=== PATIENT | female | born 1985 | race Caucasian/White ===

== ENCOUNTER 2020-10-19 00:57 | Emergency (ER) | payer MEDICAID, SELFPAY ==
--- NOTE | 2020-10-19 01:00 | DI.CT_ITS ---
Exam(s) CT ABDOMEN PELVIS CTA EXAM: CT ABDOMEN PELVIS CTA CLINICAL HISTORY: rlq pain, on period, concern for appe/torsion. TECHNIQUE: Imaging Protocol: Axial computed tomography images with coronal and sagittal reformatted images were created and reviewed CONTRAST MATERIAL: Intravenous: Omnipaque 350 Contrast volume:100 ml Oral: None COMPARISON: No exams were available for comparison FINDINGS: VISUALIZED LUNG BASES: No significant focal findings nor pleural effusions. ABDOMEN: ABDOMINAL AORTA AND BRANCHES: There is no evidence of abdominal aortic aneurysm. Aortic branch vessels are patent. Celiac and superior mesenteric artery and inferior mesenteric artery are patent. Both renal arteries are patent. The aortic bifurcation is patent. Common and external iliac arteries are patent and no naneurysmal. No significant stenosis. Common femoral arteries are patent. There is no ascites in the upper abdomen.. LIVER: No discrete focal hepatic lesions evident on this arterial phase study. There is an element o f a [place] steatosis. GALLBLADDER/BILIARY: No obvious gallbladder pathology. CBD is not dilated. PANCREAS: No evidence of pancreatic mass nor dilatation of the pancreatic duct. SPLEEN: Spleen size is normal. No intrasplenic lesions evident. ADRENALS: No significant masses. KIDNEYS: Both kidneys exhibit normal size. No abnormal focal renal findings. No calculi nor hydrone phrosis evident. No hydroureter. LYMPH NODES: There is no retroperitoneal nor para-aortic adenopathy. No obvious mesenteric masses. ABDOMINAL WALL/GI: No evidence of significant anterior abdominal wall hernia. No ischemic appearing bowel loops. No bowel obstruction. PELVIS: LYMPH NODES: There is no intrapelvic nor inguinal adenopathy. GI: No obvious appendicitis. No diverticulitis URINARY BLADDER: No calculi nor masses evident REPRODUCTIVE: Left ovary appears enlarged and abnormal measuring 4.5 x 3.6 cm and heterogeneous appea butch with a tiny amount of fluid in the left adnexa. The uterus also appears somewhat heterogeneous . Right ovary is difficult to identify. OSSEOUS: Increased density on the iliac side of both sacroiliac joints may indicate bilateral sacroil iitis. There is no ankylosis. There are also bilateral pars interarticularis defects at L5 level no panda without significant anterolisthesis of L5 upon S1. IMPRESSION: 1. The main findings are in the left adnexa. Left ovary is an enlarged and abnormal in appearance as described above. Ultrasound recommended. There is also some very small amount of fluid in the left adnexa. Ultrasound recommended. Also Gyne consultation. 2. Uterus also exhibits heterogeneous enhancement and should also be studied with ultrasound. 3. No significant findings in the abdominal aorta and aortoiliac segments. RADIATION DOSE DELIVERED: 952.12mGy.cm Total DLP 952.12mGy.cm Total DLP DATA REPOSITORY: All CT scans at this facility are submitted to the National Radiology Data Registry (NRDR) Dose Index Registry (DIR) with the [employer] (ACR). RADIATION OPTIMIZATION: All CT scans at this facility use at least one of these dose optimization te chniques: automated exposure control; mA and/or kV adjustment per patient size (includes targeted exa ms where dose is matched to clinical indication); or iterative reconstruction.
[2020-10-19 01:08] VITALS: BP 158/94; PULSE 96; RESP 22; TEMP 36.8; O2SAT 98
--- NOTE | 2020-10-19 01:09 | ED.GENADUL_ITS ---
Discharge Plan Disposition Patient Disposition: HOME Condition: Good Discharge Details Clinical Impression: Right sided abdominal pain Primary Care Provider: Azeem Elizabeth ED Provider: Ernie Mack Home Meds and New Rx's Prescriptions: No Action No Known Home Meds RF: 0 Discharge Instructions Instructions: Abdominal Pain (ED) Additional Instructions: At this time your CAT scan shows no evidence of appendicitis, ovarian torsion, or other concerning emergent surgical abnormality. Currently your symptoms are likely from a small ovarian cyst that popped and is now causing some mild irritation in your abdomen. Please take Tylenol and Motrin as needed for pain. Please drink plenty of fluids. If you notice any worsening of your symptoms, or any new symptoms such as vomiting, diarrhea, fever, chills, shortness of breath, chest pain, numbness, weakness, or fainting , please return immediately to the emergency department for reevaluation. Please follow up with your primary care provider as soon as possible for reassessment and reevaluation. As always, it was a pleasure participating in your medical care today. Referrals: Azeem Elizabeth [Primary Care Provider] - Lisseth Schilling [PHYSICIANS TIME STUDY CLERK] - Medical Decision Making This is a 35-year-old female with no significant past medical history who presents today for evaluation of right lower quadrant pain. Patient states that 1 hour prior to arrival she said had sudden onset sharp right mid abdominal tenderness. Dinner was unremarkable earlier this evening. She has nausea but no vomiting. She denies any diarrhea. She denies chest pain or shortness of breath. She did recently start her menstrual period and is currently having mild vaginal bleeding which is normal for her. She denies any diarrhea, hematochezia or hematemesis. She denies ever having symptoms like this before. Pain is sharp and radiates from the right mid quadrant throughout the rest of the abdomen. Aside from movement there is no other particular aggravating or relieving factor. No other complaint at this time. Exam demonstrates mild to moderate right lower and right mid quadrant tenderness. No significant left-sided tenderness. Pain is present at McBurney's point. Negative Vargas sign. Differential includes, appendicitis, less likely gallbladder pathology, less likely right-sided ovarian torsion. Kidney stone seems unlikely. We will get a CT scan, monitor closely and reassess. 3:30 AM Laboratory work-up has returned, notably unremarkable. No bandemia or significant left shift, electrolytes normal. Urinalysis shows no evidence of large infection, does show evidence of a small amount of blood and RBCs likely secondary to her being on her menstrual cycle. CT scan has returned, there is a small amount of free fluid in the pelvis, the left ovary is 4 x 3 cm, right ovary is notably unremarkable. Case discussed with radiologist/Kimi harding, the radiologist sees no twirling of the vessels of the ovaries, and the right ovary again has no enlargement. Repeat exam after Toradol and Jus Mab demonstrates near complete improvement of symptoms. Pain is down to a 2. Repeat abdominal exam shows no signs of an acute surgical abdomen, no significant abdominal tenderness anymore. Symptoms are clinically inconsistent with torsion. I suspect the patient had a small cyst which caused the free fluid which is subsequently causing the mild generalized abdominal pain. Repeat exam shows no obturator or psoas sign, no pain at McBurney's point, and a negative Vargas sign. Symptoms also appear inconsistent with intermittent both left and right sided torsion, and the initial assessment was inconsistent with left-sided torsion. At this time with the patient symptoms resolved, and no current evidence of an acute life-threatening or surgical etiology, I do feel that the patient can be discharged. Recommend continued NSAIDs at home. Discussed red flags which to return. I have extensively reviewed the treatment plan and discharge instructions with the patient. I have addressed all patient concerns at this time. The patient was made aware of what symptoms to monitor for that would warrant a return to the emergency department. Discussed the plan with the patient, they demonstrate verbal understanding and agreement with our assessment and plan at this time. The documentation in this chart was dictated using [employer] dictation software. Please excuse any dictation errors. FINDINGS: Aorta: No aortic aneurysm. No aortic dissection. Celiac trunk and mesenteric arteries: No occlusion or significant stenosis. Renal arteries: No occlusion or significant stenosis. Right iliac arteries: No occlusion or significant stenosis. Left iliac arteries: No occlusion or significant stenosis. Liver: Hepatic steatosis is present. Gallbladder and bile ducts: Unremarkable. No calcified stones. No ductal dilation. Pancreas: Unremarkable. No mass. No ductal dilation. Spleen: Unremarkable. No splenomegaly. Adrenal glands: Unremarkable. No mass. Kidneys and ureters: Unremarkable. No solid mass. No hydronephrosis. Stomach and bowel: Unremarkable. No obstruction. No mucosal thickening. Appendix: No evidence of appendicitis. Intraperitoneal space: Trace free fluid is present which is nonspecific but may reflect physiologic fluid or rupture of an ovarian cyst or follicle. Lymph nodes: Unremarkable. No enlarged lymph nodes. Urinary bladder: Unremarkable. No mass. Reproductive: The left ovary is slightly prominent and demonstrates periovarian small fluid. The ovary measures up to 4.1 by 3.3 cm. Normal vascularity noted in the gonadal and parametrial veins, however if clinical suspicion exists for left-sided torsion, sonography would be recommended. Bones/joints: No acute fracture. No dislocation. Soft tissues: Unremarkable. IMPRESSION: 1. Trace free pelvic fluid. 2. The left ovary is slightly prominent and demonstrates periovarian small fluid. The ovary measures up to 4.1 by 3.3 cm. Normal vascularity noted in the gonadal and parametrial veins, however if clinical suspicion exists for left-sided torsion, sonography would be recommended. Thank you for allowing us to participate in the care of your patient. Dictated and Authenticated by: Chaim Altamirano MD 10/19/2020 2:32 AM Eastern Time ([place] & [place]) HPI General Date/Time Provider Initiated Documentation: 10/19/20 00:58 . HPI Narrative: This is a 35-year-old female with no significant past medical history who presents today for evaluation of right lower quadrant pain. Patient states that 1 hour prior to arrival she said had sudden onset sharp right mid abdominal tenderness. Dinner was unremarkable earlier this evening. She has nausea but no vomiting. She denies any diarrhea. She denies chest pain or shortness of breath. She did recently start her menstrual period and is currently having mild vaginal bleeding which is normal for her. She denies any diarrhea, hematochezia or hematemesis. She denies ever having symptoms like this before. Pain is sharp and radiates from the right mid quadrant throughout the rest of the abdomen. Aside from movement there is no other particular aggravating or relieving factor. No other complaint at this time. Related Data Home Medications Medication Instructions Recorded Confirmed Unknown [No Known Home Meds] 10/19/20 10/19/20 Allergies Allergy/AdvReac Type Severity Reaction Status Date / Time promethazine HCl AdvReac Mild involuntary Unverified 10/19/20 01:15 [From Phenergan] twitching Review of Systems All systems reviewed & are unremarkable except as noted in HPI and below [facility] Social History Smoking/Tobacco Use Status: Never Smoking risk assessment performed?: Yes Alcohol Intake: current Alcohol Intake frequency: a few times a month Drug use: Never Substance use type: does not use Do you feel safe at home: Yes Do you feel safe in your relationship?: Yes Exam Narrative Exam Narrative: 1.Const: Well-nourished, Well-developed, appearing stated age 2.Eyes: PERRL, no conjunctival injection, and symmetrical lids. 3.ENT: Atraumatic external nose and ears. Moist MM. Neck: Symmetric, trachea midline, No thyromegaly. 4.CVS: +S1/S2, No murmurs or gallops. Peripheral pulses 2+ and equal in all extremities. Brisk capillary refill in all extremities. 5.RESP: Unlabored respiratory effort. Clear to auscultation bilaterally. No wheezes rales or rhonchi 6.GI: Soft, nondistended, moderate to notable right mid to right lower quadrant tenderness. No pelvic tenderness. Pain is present over McBurney's point. Negative Vargas sign. Minimal right CVA tenderness. Positive obturator sign. Positive heel strike on the right. Negative Rovsing sign. No suprapubic tenderness. 7.MSK: Normocephalic/Atraumatic, Extremities w/o deformity or ttp No cyanosis or clubbing, Normal movement of all extremities 8.Skin: Warm, Dry. No rashes or lesions. 9.Neuro: activities director II-XII grossly intact. Sensation grossly intact, no focal neurologic deficits. 10.Psych: (AAO) x3. Appropriate mood and affect
[2020-10-19] MEDS: Normal Saline 1,000 ML 1000 ML IV (01:25)
[2020-10-19] MEDS: Ondansetron 4 MG/2 ML VIAL IVP (01:26)
[2020-10-19] MEDS: HYDROmorphone 2 MG/ML VIAL 1 MG IVP (01:27)
[2020-10-19 01:29] LABS: Bilirubin Negative (Negative); Blood Large (Negative); Clarity Sl Cloudy (Clear); Glucose Negative (Negative); Ketones Trace mg/dL (Negative); Leukocyte Esterase Small (Negative); Nitrite Negative (Negative); Specific Gravity >= 1.030 (1.005-1.025); pH 6.5 (5-8)
[2020-10-19 01:30] VITALS: BP 122/68; PULSE 84; RESP 18; O2SAT 97
[2020-10-19] MEDS: Omnipaque 350 MG/ML 100 ML BTL IJ (01:36)
[2020-10-19 01:37] LABS: Bacteria Few HPF (Negative); C & S Indicated? Yes; Casts Negative LPF (Negative); Crystals Negative HPF (Negative); Epithelial Cells Rare HPF (Negative); Mucus Negative (Negative)
[2020-10-19 01:40] LABS: Lactate 1.2 mmol/L (0.6-1.4)
[2020-10-19 01:41] LABS: Abs Immature Grans 0.04 10^3/uL (0.0-0.06); Absolute Basophil Count 0.02 10^3/uL (0.0-0.2); Absolute Eosinophil Count 0.14 10^3/uL (0.0-0.7); Absolute Lymphocyte Count 2.32 10^3/uL (1.2-3.4); Absolute Monocyte Count 0.55 10^3/uL (0.1-0.8); Absolute Neutrophil Count 8.71 10^3/uL (1.2-6.7); Basophils % 0.2; Eosinophils % 1.2; HGB 12.9 g/dL (11.2-15.7); Immature Grans % 0.3; Lymphocytes % 19.7; MCH 27.4 pg (27.0-33.0); MCHC 33.1 % (32.0-36.0); MPV 9.1 fL (8.0-11.0); Monocytes % 4.7; Neutrophils % 73.9; Nucleated RBC 0 %; Platelet Count 297 10^3/uL (130-400); RDW 12.2 % (11.7-14.6); WBC 11.79 10^3/uL (4.4-10.8)
[2020-10-19 01:45] VITALS: BP 122/77; PULSE 84; RESP 18; O2SAT 99
[2020-10-19 01:49] LABS: Potassium 3.7 mmol/L (3.5-5.1)
[2020-10-19 02:01] LABS: ALT 22 U/L (14-59); AST 15 U/L (15-37); Albumin 3.7 g/dL (3.4-5.0); Alkaline Phosphatase 65 U/L (46-116); Anion Gap 11.1 mmol/L (3-11); BUN 16 mg/dL (7-18); Bilirubin, Total 0.4 mg/dL (0.2-1.0); CO2 24.9 mmol/L (21.0-32.0); Calcium 8.7 mg/dL (8.5-10.1); Chloride 106 mmol/L (98-107); Glucose 113 mg/dL (74-106); Lipase 108 U/L (73-393); Sodium 142 mmol/L (136-145); Total Protein 7.7 g/dL (6.4-8.2)
[2020-10-19] MEDS: Normal Saline - Diluent 50 ML VIAL IV (02:10)
[2020-10-19] MEDS: Normal Saline Flush 10 ML SYR IVP (02:11)
[2020-10-19 02:15] VITALS: BP 144/70; PULSE 87; RESP 18; O2SAT 100
--- NOTE | 2020-10-19 02:32 | DI.VRAD_ITS ---
PROCEDURE INFORMATION: Exam: CTA Abdomen and Pelvis With Contrast Exam date and time: 10/19/2020 1:56 AM Age: 35 years old Clinical indication: Abdominal pain; Localized; Right lower quadrant (rlq); Patient HX: Rlq pain , on period, concern for appe/torsion TECHNIQUE: Imaging protocol: Computed tomographic angiography of the abdomen and pelvis with contrast material. 3D rendering (Not supervised by radiologist): MIP and/or 3D reconstructed images were created by the technologist. Radiation optimization: All CT scans at this facility use at least one of these dose optimization techniques: automated exposure control; mA and/or kV adjustment per patient size (includes targeted exams where dose is matched to clinical indication); or iterative reconstruction. Contrast material: OMNIPAQUE 350; Contrast volume: 100 ml; Contrast route: INTRAVENOUS (IV); COMPARISON: No relevant prior studies available. FINDINGS: Aorta: No aortic aneurysm. No aortic dissection. Celiac trunk and mesenteric arteries: No occlusion or significant stenosis. Renal arteries: No occlusion or significant stenosis. Right iliac arteries: No occlusion or significant stenosis. Left iliac arteries: No occlusion or significant stenosis. Liver: Hepatic steatosis is present. Gallbladder and bile ducts: Unremarkable. No calcified stones. No ductal dilation. Pancreas: Unremarkable. No mass. No ductal dilation. Spleen: Unremarkable. No splenomegaly. Adrenal glands: Unremarkable. No mass. Kidneys and ureters: Unremarkable. No solid mass. No hydronephrosis. Stomach and bowel: Unremarkable. No obstruction. No mucosal thickening. Appendix: No evidence of appendicitis. Intraperitoneal space: Trace free fluid is present which is nonspecific but may reflect physiologic fluid or rupture of an ovarian cyst or follicle. Lymph nodes: Unremarkable. No enlarged lymph nodes. Urinary bladder: Unremarkable. No mass. Reproductive: The left ovary is slightly prominent and demonstrates periovarian small fluid. The ovary measures up to 4.1 by 3.3 cm. Normal vascularity noted in the gonadal and parametrial veins, however if clinical suspicion exists for left-sided torsion, sonography would be recommended. Bones/joints: No acute fracture. No dislocation. Soft tissues: Unremarkable. IMPRESSION: 1. Trace free pelvic fluid. 2. The left ovary is slightly prominent and demonstrates periovarian small fluid. The ovary measures up to 4.1 by 3.3 cm. Normal vascularity noted in the gonadal and parametrial veins, however if clinical suspicion exists for left-sided torsion, sonography would be recommended. Dictated and Authenticated by: Chaim Altamirano MD. Ordering:FAREED Klein MD
[2020-10-19 03:00] VITALS: BP 127/88; PULSE 84; RESP 18; O2SAT 99
[2020-10-19] MEDS: Ketorolac 30 MG/ML VIAL IVP (03:05)
[2020-10-19] MEDS: ACETAMINOPHEN 1,000 MG/100 ML BTL 400 MG IVPB (03:10)
== END 2020-10-19 03:45 | disposition home or self-care (01) ==
PROVIDERS: Emergency Provider Student in an Organized Health Care Education/Training Program; PCP Family Medicine
DX: R10.31 Right lower quadrant pain (principal)
CPT/HCPCS: 80053; 81025; 83690; 96361; 96374; 96375; 99285; 74174; 81003; 81015; 83605; 85025; 87086; 99284; J0131; J1885; J2405; J3490

== ENCOUNTER 2022-08-15 03:22 | Observation (INO) | payer MEDICAID, SELFPAY ==
[2022-08-15] VITALS (15 sets, daily range): BP systolic 80–145; BP diastolic 58–88; PULSE 78–107; RESP 11–18; TEMP 35.7–36.8; O2SAT 97–99; BMI 37.8
--- NOTE | 2022-08-15 03:30 | DI.CT_ITS ---
Exam(s) CT ABDOMEN PELVIS W EXAM: CT ABDOMEN PELVIS W CLINICAL HISTORY: rlq pain, vomiting, hx of cysts. TECHNIQUE: Imaging Protocol: Axial computed tomography images with coronal and sagittal reformatted images were created and reviewed CONTRAST MATERIAL: Intravenous: Omnipaque 350 Contrast volume:100 ml Oral: yes / no COMPARISON: CT CT ABDOMEN PELVIS CTA from 10/19/2020 FINDINGS: ABDOMEN: Lung Bases: Normal where visualized. Small hiatal hernia. Liver: Normal density. No measurable mass. Gallbladder and biliary tract: gallstones. No bladder wall thickening. No biliary dilation. Pancreas: Normal density, no abnormal calcifications or inflammatory process. Spleen: Normal. Kidneys: Normal size, contour and axis. No radiodense stones or obstructive uropathy. No suspicious m asses seen. Circumaortic left renal vein. Adrenal glands: No masses seen. Abdominal Aorta: Abdominal portion non-dilated. Soft tissues: Small fatty containing umbilical hernia. PELVIS: Bladder: No gross wall thickening. No calculi.No focal mass. Bowel: No obstruction. Mild nonspecific bowel wall thickening. Mild small bowel dilatation. No ev idence of appendicitis. Peritoneal cavity: Small amount of fluid in the right paracolic gutter and small to moderate quantity of pelvic ascites. Pelvis. Bones: L5 pars defects and grade 1 spondylolisthesis. Reproductive organs: Septated cystic mass with wall thickening arising from the left ovary measuring 10 x 7 x 6 cm. This was seen on the prior exam but smaller in size, approximately 4 x 3 cm. Right ova ry uterus unremarkable. Lymph nodes: Unremarkable. Impression: 10 centimeter septated cystic mass with wall thickening involving the left ovary. Pelvic ascites. 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 RADIATION DOSE DELIVERED: 991.02mGy.cm Total DLP DATA REPOSITORY: All CT scans at this facility are submitted to the National Radiology Data Registry (NRDR) Dose Index Registry (DIR) with the [employer] (ACR). RADIATION OPTIMIZATION: All CT scans at this facility use at least one of these dose optimization te chniques: automated exposure control; mA and/or kV adjustment per patient size (includes targeted exa ms where dose is matched to clinical indication); or iterative reconstruction.
--- NOTE | 2022-08-15 03:33 | W.ED.GENAD ---
Discharge Plan Disposition Patient Disposition: Admit to [facility] Condition: Serious Discharge Details Chief Complaint: Abd Prob Clinical Impression: Ovarian cyst Primary Care Provider: Azeem Elizabeth ED Provider: Ernie Mack Medical Decision Making 37-year-old female with a past medical history of ovarian cysts, anxiety, depression, presents today for evaluation of abdominal pain. Patient states that for the last 1 to 2 weeks she has had mild pain on the left side of her abdomen, however for the last 20 to 30 minutes she has had severe pain on the right side of her abdomen. She had been taking Tylenol but this has not been helping her pain significantly on the left. She has not taken anything for the new pain on the right. She describes the pain as severe aching and stabbing. It is constant. It does not come and go. She admits to vomiting secondary to the pain. She denies any urinary complaints or diarrhea. No blood in her vomitus. Physical exam demonstrates a slightly in distress female, right lower quadrant tenderness is appreciated. CVA tenderness bilaterally is present. Differential includes appendicitis, ovarian cyst or ovarian torsion, obstruction. We will get a CT scan, treat her nausea and pain, monitor closely and reassess. 5:26 AM Laboratory work-up has returned, no white count or bandemia. Urinalysis shows questionable UTI, however there are many epithelial cells so I suspect this is just a dirty urine sample. CT scan results demonstrate evidence of a 10 cm cystic mass in the pelvis, with possible enteritis and/or ileus. On reassessment the initial 4 mg of morphine did not improve the pain. Second 4 mg of morphine dosing with Toradol did help bring down the pain from a 10 to a 6. Patient is feeling improved but still does have notable discomfort. Concern is certainly for an ovarian cyst that is intermittently torsed thing. I did contact obstetrics Dr. Borrego, and discussed the case with her. She agrees with the potential concern, and will come in to evaluate the patient. Patient has been typed and screened. She is n.p.o. since 7 PM last night. We will continue to monitor closely. 6:[address] Borrego has seen and assessed the patient. She would like to bring the patient to surgery. I have extensively reviewed the treatment plan with the patient. I have addressed all patient concerns at this time. I have also discussed the plan with the admitting physician and they agree with the current assessment and plan and have agreed to assume responsibility for the patient. All parties demonstrate verbal understanding and agreement with our assessment and plan at this time. The documentation in this chart was dictated using [employer] dictation software. Please excuse any dictation errors. FINDINGS: Liver: Normal. No mass. Gallbladder and bile ducts: Normal. No calcified stones. No ductal dilation. Pancreas: Normal. No ductal dilation. Spleen: Normal. No splenomegaly. Adrenal glands: Normal. No mass. Kidneys and ureters: Normal. No hydronephrosis. Stomach and bowel: Mildly dilated small bowel loop in the left abdomen. Possible mucosal thickening of distal small bowel loops. Appendix: Nonvisualized appendix. Intraperitoneal space: Moderate fluid in the pelvis. Small perihepatic ascites. No free air. Vasculature: Unremarkable. No abdominal aortic aneurysm. Lymph nodes: Unremarkable. No enlarged lymph nodes. Urinary bladder: Unremarkable as visualized. Reproductive: Septated cystic mass in the pelvis measuring 10 x 7 by 6 cm which likely arises from the left ovary Bones/joints: Pars defects at L5-S1 with grade 1 spondylolisthesis. No acute fracture. Soft tissues: Umbilical hernia containing fat. IMPRESSION: 1. 10 cm cystic mass in the pelvis as above. Further evaluation with pelvic ultrasound or MRI is recommended. 2. Possible enteritis and ileus or partial obstruction. Thank you for allowing us to participate in the care of your patient. Dictated and Authenticated by: Fantasma Patel MD 08/15/2022 4:59 AM Eastern Time ([place] & [place]) HPI General Date/Time Provider Initiated Documentation: 08/15/22 03:23. HPI Narrative: 37-year-old female with a past medical history of ovarian cysts, anxiety, depression, presents today for evaluation of abdominal pain. Patient states that for the last 1 to 2 weeks she has had mild pain on the left side of her abdomen, however for the last 20 to 30 minutes she has had severe pain on the right side of her abdomen. She had been taking Tylenol but this has not been helping her pain significantly on the left. She has not taken anything for the new pain on the right. She describes the pain as severe aching and stabbing. It is constant. It does not come and go. She admits to vomiting secondary to the pain. She denies any urinary complaints or diarrhea. No blood in her vomitus. Related Data Allergies Allergy/AdvReac Type Severity Reaction Status Date / Time promethazine HCl AdvReac Mild involuntary Unverified 08/15/22 03:36 [From Phenergan] twitching General JEFFREY: 3 Review of Systems All systems reviewed & are unremarkable except as noted in HPI and below PFSH All Active Problems (Updated 08/15/22 @ 06:59 by Ernie Mack DO) Ovarian cyst (Acute) Right sided abdominal pain (Acute) Social History Smoking/Tobacco Use Status: Never Smoking risk assessment performed?: Yes Alcohol Intake: current Alcohol Intake frequency: a few times a month Drug use: Never Substance use type: does not use Do you feel safe at home: Yes Do you feel safe in your relationship?: Yes History History 3 Para 2 Hx # Term Pregnancies 2 Multiple births Hx # Pregnancies Ectopic pregnancies AB induced Hx Number of Living Children 2 AB spontaneous 1 Exam Narrative Exam Narrative: 1.Const: Well-nourished, Well-developed, appearing stated age 2.Eyes: PERRL, no conjunctival injection, and symmetrical lids. 3.ENT: Atraumatic external nose and ears. Moist MM. Neck: Symmetric, trachea midline, No thyromegaly. 4.CVS: +S1/S2, No murmurs or gallops. Peripheral pulses 2+ and equal in all extremities. Brisk capillary refill in all extremities. 5.RESP: Unlabored respiratory effort. Clear to auscultation bilaterally. No wheezes rales or rhonchi 6.GI: Soft, nondistended, tenderness in the right lower quadrant, right CVA and left CVA tenderness. No left lower quadrant tenderness. 7.MSK: Normocephalic/Atraumatic, Extremities w/o deformity or ttp No cyanosis or clubbing, Normal movement of all extremities 8.Skin: Warm, Dry. No rashes or lesions. 9.Neuro: scientist propagator II-XII grossly intact. Sensation grossly intact, no focal neurologic deficits. 10.Psych: (AAO) x3. Appropriate mood and affect
[2022-08-15] MEDS: Normal Saline 1,000 ML 1000 ML IV (03:40)
[2022-08-15] MEDS: Ondansetron 4 MG/2 ML VIAL IVP ×3 (03:40→20:34)
[2022-08-15 03:49] LABS: Abs Immature Grans 0.03 10^3/uL (0.0-0.06); Absolute Basophil Count 0.04 10^3/uL (0.0-0.2); Absolute Eosinophil Count 0.13 10^3/uL (0.0-0.7); Absolute Lymphocyte Count 4.01 10^3/uL (1.2-3.4); Absolute Monocyte Count 0.65 10^3/uL (0.1-0.8); Absolute Neutrophil Count 4.84 10^3/uL (1.2-6.7); Basophils % 0.4; Eosinophils % 1.3; HCT 41.4 % (36.0-46.0); HGB 13.5 g/dL (11.2-15.7); Immature Grans % 0.3; Lymphocytes % 41.3; MCH 26.6 pg (27.0-33.0); MCHC 32.6 % (32.0-36.0); MCV 82 fL (80-95); MPV 8.5 fL (8.0-11.0); Monocytes % 6.7; Platelet Count 314 10^3/uL (130-400); RBC 5.08 10^6/uL (3.93-5.22); RDW 12.5 % (11.7-14.6); RDW-SD 36.9 fL
[2022-08-15] MEDS: MORPHine 4 MG/ML SYR IVP ×2 (03:50→04:59)
[2022-08-15 04:16] LABS: ALT 14 U/L (14-59); AST 12 U/L (15-37); Albumin 3.8 g/dL (3.4-5.0); Alkaline Phosphatase 63 U/L (46-116); Anion Gap 10.3 mmol/L (3-11); BUN 15 mg/dL (7-18); Bilirubin, Total 0.2 mg/dL (0.2-1.0); CO2 26.7 mmol/L (21.0-32.0); CREATININE 0.9 mg/dL (0.55-1.02); Calcium 8.9 mg/dL (8.5-10.1); Chloride 106 mmol/L (98-107); Glucose 165 mg/dL (74-106); Lipase 34 U/L (16-77); Potassium 3.5 mmol/L (3.5-5.1); Sodium 143 mmol/L (136-145); Total Protein 7.8 g/dL (6.4-8.2)
[2022-08-15 04:24] LABS: Bilirubin Negative (Negative); Blood Negative (Negative); Clarity Sl Cloudy (Clear); Glucose Negative (Negative); Ketones Trace mg/dL (Negative); Leukocyte Esterase Trace (Negative); Nitrite Negative (Negative); Specific Gravity >= 1.030 (1.005-1.025); Urobilinogen 0.2 mg/dL (Up to 0.2); pH 5.5 (5-8)
[2022-08-15] MEDS: Omnipaque 350 MG/ML 100 ML BTL IJ (04:33)
[2022-08-15] MEDS: Normal Saline - Diluent 50 ML VIAL IJ (04:44)
[2022-08-15 04:50] LABS: Bacteria Moderate HPF (Negative); C & S Indicated? No/Sq. Contamination; Casts Negative LPF (Negative); Crystals Negative HPF (Negative); Epithelial Cells Many HPF (Negative); Mucus Trace (Negative); RBC 0-2 HPF (0-2)
[2022-08-15] MEDS: Ketorolac 15 MG/ML VIAL IVP (04:59)
--- NOTE | 2022-08-15 05:01 | DI.VRAD_ITS ---
PROCEDURE INFORMATION: Exam: CT Abdomen And Pelvis With Contrast Exam date and time: 08/15/2022 4:30 AM Age: 37 years old Clinical indication: Abdominal pain; Localized; Right lower quadrant (rlq); Patient HX: Rlq pain, vomiting, HX of cysts TECHNIQUE: Imaging protocol: Computed tomography of the abdomen and pelvis with contrast. Contrast material: OMNIPAQUE 350; Contrast volume: 100 ml; Contrast route: INTRAVENOUS (IV); COMPARISON: CT ABDOMEN PELVIS CTA 10/19/2020 2:00 AM FINDINGS: Liver: Normal. No mass. Gallbladder and bile ducts: Normal. No calcified stones. No ductal dilation. Pancreas: Normal. No ductal dilation. Spleen: Normal. No splenomegaly. Adrenal glands: Normal. No mass. Kidneys and ureters: Normal. No hydronephrosis. Stomach and bowel: Mildly dilated small bowel loop in the left abdomen. Possible mucosal thickening of distal small bowel loops. Appendix: Nonvisualized appendix. Intraperitoneal space: Moderate fluid in the pelvis. Small perihepatic ascites. No free air. Vasculature: Unremarkable. No abdominal aortic aneurysm. Lymph nodes: Unremarkable. No enlarged lymph nodes. Urinary bladder: Unremarkable as visualized. Reproductive: Septated cystic mass in the pelvis measuring 10 x 7 by 6 cm which likely arises from the left ovary. Bones/joints: Pars defects at L5-S1 with grade 1 spondylolisthesis. No acute fracture. Soft tissues: Umbilical hernia containing fat. IMPRESSION: 1. 10 cm cystic mass in the pelvis as above. Further evaluation with pelvic ultrasound or MRI is recommended. 2. Possible enteritis and ileus or partial obstruction. Dictated and Authenticated by: Fantasma Patel MD. Ordering:FAREED Klein MD
--- NOTE | 2022-08-15 06:52 | HPE_ITS ---
Date of service: 08/15/22 Time of Service: 06:52 Assessment and Plan Assessment and plan (1) Ovarian cyst: Status: Acute Assessment and plan: Patient will 10 cm cystic mass with septations on pelvic CT. There appears to be some degree of small bowel obstruction or partial obstruction as a result of the mass. I consented the patient to have a laparotomy with removal of the left adnexal structure versus left ovarian cystectomy. She was counseled regarding the possible need for a left salpingectomy or surgical consultation regarding patient's partial bowel obstruction. The risks of the procedure were discussed with her including the risk of infection damage to surrounding structures including bowel bladder ureters and blood vessels. Her informed consent was signed and anesthesia in OR providers notified. History of Present Illness History of Present Illness Chief Complaint: Left-sided pain, ovarian cyst Consults Consult date: 08/15/22 Requesting physician: Ernie Mack Narrative: Patient is a 37-year-old female with last menstrual period approximately the middle of July who presented to the [facility] emergency department with an episode of stabbing left lower quadrant pain approximately 3:00 this morning. Prior to the onset of sharp pain she has been experiencing a dull left lower quadrant ache for the past week. She treated with Tylenol and it did not resolv e. She was planning to see assessment with her primary care provider today. The sharp stabbing pain persisted for several minutes and then resolved back to her normal sided ache she has been experiencing all week. She had emesis at the time of the acute episode of pain. Review of Systems Constitutional Constitutional: Reports as per HPI Cardiovascular Cardiovascular: Reports system reviewed and no additional complaints, except as documented Respiratory Respiratory: Reports system reviewed and no additional complaints, except as documented Gastrointestinal Gastrointestinal: Reports nausea and Reports vomiting (At time of acute episode of pelvic pain) Genitourinary Genitourinary: Reports as per HPI Musculoskeletal Musculoskeletal: Reports system reviewed and no additional complaints, except as documented Neurologic Neurologic: Reports system reviewed and no additional complaints, except as documented Psychiatric Psychiatric: Reports system reviewed and no additional complaints, except as documented PFSH All Active Problems (Updated 08/15/22 @ 06:59 by Ernie Mack DO) Ovarian cyst (Acute) Right sided abdominal pain (Acute) Social History Smoking/Tobacco Use Status: Never Smoking risk assessment performed?: Yes Alcohol Intake: current Alcohol Intake frequency: a few times a month Drug use: Never Substance use type: does not use Do you feel safe at home: Yes Do you feel safe in your relationship?: Yes Female Reproductive History Menstrual Duration of menses: 3-5 days Date of last menstrual period: 07/27/22 control method: none (Has used OCPs intermittently. Currently not sexually active) and other History History 2 3 Para 2 Hx # Term Pregnancies 2 Multiple births Hx # Pregnancies Ectopic pregnancies AB induced Hx Number of Living Children 2 AB spontaneous 1 Meds Allergies and Home Medications Allergies Allergy/AdvReac Type Severity Reaction Status Date / Time promethazine HCl AdvReac Mild involuntary Unverified 08/15/22 03:36 [From Phenergan] twitching Exam Const General: in distress Nutritional Appearance: obese Orientation: alert, awake and oriented x3 Resp Effort & Inspection: normal respiratory effort Auscultation: clear to auscultation bilaterally Cardio Rate: regular rate Rhythm: regular rhythm General: deferred Skin General skin exam: no rashes or lesions noted (Multiple tattoos) Neuro Cognition: normal cognition Speech: speech normal Extrem General: normal to inspection Psych Appearance: grossly normal Mental Status: mental status grossly normal Speech and Movement: speech and movement normal Mood: congruent mood Affect: normal affect Attitude: cooperative Results Imaging CT scan - pelvis: report reviewed and image reviewed Labs 08/15/22 03:41 08/15/22 03:41 Labs: Laboratory Results - last 24 hr 08/15/22 08/15/22 08/15/22 03:41 03:41 04:15 WBC 9.70 RBC 5.08 Hgb 13.5 Hct 41.4 MCV 82 MCH 26.6 L MCHC 32.6 RDW 12.5 Plt Count 314 MPV 8.5 Immature Gran % 0.3 Neutrophils % 50.0 Lymphocytes % 41.3 Monocytes % 6.7 Eosinophils % 1.3 Basophils % 0.4 Nucleated RBC % 0.0 Absolute Neutrophils 4.84 Absolute Lymphocytes 4.01 H Absolute Monocytes 0.65 Absolute Eosinophils 0.13 Absolute Basophils 0.04 Sodium 143 Potassium 3.5 Chloride 106 Carbon Dioxide 26.7 Anion Gap 10.3 BUN 15 Creatinine 0.9 Est GFR (CKD-EPI 2020) 85.50 Glucose 165 H Calcium 8.9 Total Bilirubin 0.2 AST 12 L ALT 14 Alkaline Phosphatase 63 Total Protein 7.8 Albumin 3.8 Lipase 34 Urine Color Yellow Urine Clarity Sl Cloudy Urine pH 5.5 Ur Specific Gabbs >= 1.030 H Urine Protein 100 H Urine Ketones Trace H Urine Blood Negative Urine Nitrite Negative Urine Bilirubin Negative Urine Urobilinogen 0.2 Ur Leukocyte Esterase Trace H Urine RBC 0-2 Urine WBC 10-20 H Ur Epithelial Cells Many Urine Crystals Negative Urine Bacteria Moderate Urine Casts Negative Urine Mucus Trace Ur Culture Indicated? No/Sq. Contamination Urine Glucose Negative Patient ABO/Rh Antibody Screen 08/15/22 05:25 WBC RBC Hgb Hct MCV MCH MCHC RDW Plt Count MPV Immature Gran % Neutrophils % Lymphocytes % Monocytes % Eosinophils % Basophils % Nucleated RBC % Absolute Neutrophils Absolute Lymphocytes Absolute Monocytes Absolute Eosinophils Absolute Basophils Sodium Potassium Chloride Carbon Dioxide Anion Gap BUN Creatinine Est GFR (CKD-EPI 2020) Glucose Calcium Total Bilirubin AST ALT Alkaline Phosphatase Total Protein Albumin Lipase Urine Color Urine Clarity Urine pH Ur Specific Gabbs Urine Protein Urine Ketones Urine Blood Urine Nitrite Urine Bilirubin Urine Urobilinogen Ur Leukocyte Esterase Urine RBC Urine WBC Ur Epithelial Cells Urine Crystals Urine Bacteria Urine Casts Urine Mucus Ur Culture Indicated? Urine Glucose Patient ABO/Rh A Positive Antibody Screen NEGATIVE Last Vital Signs Temp 96.2 F L 08/15/22 03:32 Pulse 107 H 08/15/22 03:32 Resp 18 08/15/22 03:32 BP 145/88 H 08/15/22 03:32 Pulse Ox 97 08/15/22 03:32 Time Spent Time spent with Patient: <40 minutes Time was spent: preparing to see the patient(eg.review tests), obtaining and/or reviewing separately otained hiistory, referring, communicating with other health college and career counselor, indepentently interpreting results and counseling the patient
--- NOTE | 2022-08-15 06:58 | ANES.PREOP_ITS ---
General Info Date of Service Date Performed: 08/15/22 Height: 5 ft Weight: 87.8 kg Body Mass Index (BMI): 37.8 Meds Allergies and Home Medications Allergies Allergy/AdvReac Type Severity Reaction Status Date / Time promethazine HCl AdvReac Mild involuntary Unverified 08/15/22 03:36 [From Phenergan] twitching Current Visit Medications: Current Medications Generic Name Dose Route Start Last Admin Trade Name Freq PRN Reason Stop Dose Admin Iohexol 100 ml 08/15/22 04:45 08/15/22 04:33 Omnipaque 350 Mg/Ml 100 Ml Btl IJ 09/14/22 23:59 100 ml DIRECTED PETR Administration Sodium Chloride 50 ml 08/15/22 04:45 08/15/22 04:44 Normal Saline - Diluent 50 Ml Vial IJ 50 ml .FOR DI USE PETR Administration PFSH Active Problems Active Problems: Problem Status Onset Code Right sided abdominal pain R10.9 Tobacco Smoking/Tobacco Use Status: Never Alcohol Alcohol Intake: current Alcohol intake frequency: a few times a month Substance Use Substance use: Never Substance use type: does not use Prental History History 3 Para 2 Hx # Term Pregnancies 2 Multiple births Hx # Pregnancies Ectopic pregnancies AB induced Hx Number of Living Children 2 AB spontaneous 1 Vital Signs and Lab Results Vital Signs Most Recent Vital Signs in EMR: Most Recent Vital Signs Temp Pulse Resp BP Pulse Ox 35.7 C L 107 H 18 145/88 H 97 08/15/22 03:32 08/15/22 03:32 08/15/22 03:32 08/15/22 03:32 08/15/22 03:32 Point of Care Results Point of Care Results: POC- Test(urine) Negative 08/15/22 04:20 Lab Results 08/15/22 03:41 08/15/22 03:41 Blood Type / Crossmatch: Patient ABO/Rh A Positive 08/15/22 Antibody Screen NEGATIVE 08/15/22 Complete Blood Count: White Blood Count 9.70 10^3/uL (4.4-10.8) 08/15/22 03:41 Red Blood Count 5.08 10^6/uL (3.93-5.22) 08/15/22 03:41 Hemoglobin 13.5 g/dL (11.2-15.7) 08/15/22 03:41 Hematocrit 41.4 % (36.0-46.0) 08/15/22 03:41 Platelet Count 314 10^3/uL (130-400) 08/15/22 03:41 Complete Metabolic Panel: Sodium 143 mmol/L (136-145) 08/15/22 03:41 Potassium 3.5 mmol/L (3.5-5.1) 08/15/22 03:41 Chloride 106 mmol/L (98-107) 08/15/22 03:41 Carbon Dioxide 26.7 mmol/L (21.0-32.0) 08/15/22 03:41 BUN 15 mg/dL (7-18) 08/15/22 03:41 Creatinine 0.9 mg/dL (0.55-1.02) 08/15/22 03:41 Est GFR (CKD-EPI 2020) 85.50 (mL/min/1.73m2) 08/15/22 03:41 Calcium 8.9 mg/dL (8.5-10.1) 08/15/22 03:41 Albumin 3.8 g/dL (3.4-5.0) 08/15/22 03:41 Glucose 165 mg/dL (74-106) H 08/15/22 03:41 Liver Function Panel: Alanine Aminotransferase (ALT/SGPT) 14 U/L (14-59) 08/15/22 03: 41 Aspartate Amino Transf (AST/SGOT) 12 U/L (15-37) L 08/15/22 03: 41 Coagulation Panel: No Data to Display Cardiac Panel: No Data to Display Arterial Blood Gas: 2 No Data to Display Venous Blood Gas: No Data to Display Pancreas Panel: Lipase 34 U/L (16-77) 08/15/22 03:41 Thyroid Panel: No Data to Display Infectious Disease: No Data to Display Blood Cultures: No Data to Display Toxicology Panel: No Data to Display Panel: No Data to Display Anesthesia Assessment and Plan Anesthesia History Personal History: PONV Family History: No Family History of Anesthesia Complications Exercise Tolerance Exercise Tolerance: Metabolic Equivalents>4 Pertinent Negatives Pertinent Negatives: No Symptoms of GERD, No Major Cardiovascular Symptoms or Complaints and No Major Pulmonary Symptoms or Complaints Cardiac & Pulmonary Exam Cardiac Exam: Normal S1/S2 Heart Sounds Pulmonary Exam: Clear Bilateral Breath Sounds Implantable Cardiac Device Does patient have a Pacemaker or an ICD?: No Airway Exam Known Difficult Airway: No Mallampati Class: 2 Mouth Opening: Normal (> 3cm) Thyromental Distance: Greater than 3 cm Neck Range of Motion: Full ROM Neck Circumference: Normal Teeth Condition: Normal Dentition ASA Classification ASA Score: ASA 2 Emergency Case?: Yes NPO Status NPO Status: NPO Clears >2 hours, Solids >8 hours Status Status: Negative HCG Anesthesia Plan Resuscitation Status: Full Code Anesthesia Technique: General Anesthesia Airway Planned: Endotracheal Tube Monitors Used: Standard Monitors
[2022-08-15 07:34] LABS: Source Nasal/Nares
[2022-08-15] MEDS: Lactated Ringers 1,000 ML 80 ML IV (07:59)
[2022-08-15] MEDS: ceFAZolin 2 GM/50 ML BAG 100 GM (08:18)
[2022-08-15 08:23] LABS: COVID-19 PCR Negative (Negative)
--- NOTE | 2022-08-15 08:30 | PAPNONF_PTH ---
PATIENT: Mackenzie Rust LOC: OBS U#:[id number] AGE/SX: 37/F ROOM: OBS.306 RE08/15/[address]: Rhina Borrego : 1985 BED: A DIS: 08/16/2022 SPEC #: [id number] RECD: 08/15/22 13:15 STATUS: CRISTY REQ #: [id number] ERASTO: 08/15/22 08:[address]: Rhina Borrego [facility]PT[facility] Cytology RECD BY: Sherrell Doe ENTERED: 08/15/22 13:15 SP TYPE: PAPALEAF BHAVNA DR: Azeem Elizabeth Tissues: 1 - BODY FLUID CYTO(NOT S/U/N/EM)[facility] Procedures: BODY FLUID CYTO(NOT SPU/UR/NIP/ENDOM)[facility] Comments: [id number] (TV = 80 ml, SENT FRESH) (REFRIGERATED)
--- NOTE | 2022-08-15 08:30 | OVAR_PTH ---
PATIENT: Mackenzie Rust LOC: OBS U#:[id number] AGE/SX: 37/F ROOM: OBS.306 RE08/15/[address]: Rhina Borrego : 1985 BED: A DIS: 08/16/2022 SPEC #: [id number] RECD: 08/15/22 12:51 STATUS: CRISTY REQ #: [id number] ERASTO: 08/15/22 08:[address]: Rhina Borrego DEPT: Surgical Specimen RECD BY: Sherrell Doe ENTERED: 08/15/22 12:51 SP TYPE: CHRIS HUGGINS DR: Azeem Elizabeth Tissues: 1 - OVARY BIOPSY Procedures: GROSS AND MICRO LEVEL 4 Comments: [id number]
[2022-08-15] MEDS: Bupivacaine 0.25% Pres-Free 30 ML VIAL (09:28)
--- NOTE | 2022-08-15 09:52 | ROE_ITS ---
Date of service: 08/15/22 Time of Service: 09:52 Operative Note Operative Note DATE OF PROCEDURE: 08/15/22 PRE-OP DIAGNOSIS: Pelvic pain, left ovarian cyst POST-OP DIAGNOSIS: same Partial torsion of left ovary. Rupture of ovarian cyst. PROCEDURE: laparotomy with removal of L ovarian cyst wall, lysis of small bowel and cecum adhesions to left ovarian cyst. SURGEON: Rhina Borrego ASSISTING SURGEON: Niurka Rhoades JACKSCREW MAN: Jimmy Griggs Refer to Anesthesia Record ESTIMATED BLOOD LOSS: 50 PATHOLOGY: other (Pelvic washings, left ovarian cyst wall) COMPLICATIONS: None Patient was transported to: PACU Patient's condition: stable Indications: Pt is a 37-year-old G3, P2 female who had a sudden set of stabbing left lower quadrant pain early in the morning of 08/15/2022. CAT scan of the pelvis showed 10 cm septated left ovarian cyst possible small bowel obstruction and pelvic free fluid. Findings: Brown-tinged pelvic and abdominal fluid upon entry into the abdomen. The left ovary was enlarged with adhesions of the capsule of the ovary to the cecum and small intestine. Left fallopian tube appeared normal. Right adnexa normal uterus small and mobile There wa approximately 350 cc of dark brown thin fluid within the left ovarian cyst that was extravasating from the base of the cyst deep in the pelvis. Cyst wall was stained yellow brown. Normal appearing ovarian parenchyma in proximity to the cyst cavity. Procedure Description: Patient was taken to the operating room she was placed in the dorsal supine position and generalized endotracheal anesthesia administered without difficulty. SCDs and a Trivedi catheter to gravity drainage were placed place. She sees a 2 g of Ancef upon arrival in the OR. The patient was prepped and draped in the usual sterile fashion. Surgical timeout was performed. After infiltration of the site with 0.25% Marcaine without epinephrine a Pfannenstiel skin incision was made approximately 2 cm superior to the pubic symphysis using a scalpel and the underlying subcutaneous tissue dissected using Bovie electrocautery to the level of the rectus fascia. The rectus fascia was then nicked in the midline and the fascial incision extended laterally using Bovie electrocautery. 2 Nri clamps were applied to the inferior rectus fascia and the rectus fascia was dissected off of the underlying rectus muscles using Bovie electrocautery and blunt technique. A similar technique was carried out on the superior rectus fascia. Rectus muscles were then in the midline and the peritoneum entered bluntly. There was copious amount of brown stained fluid in the abdomen and pelvis. Pelvic washings were obtained. The fluid was then suction aspirated and the pelvis inspected with the above-noted findings. The peritoneal incision was extended laterally using blunt technique and sharp dissection. An O'Irvin-O'Weaver retaining retractor was placed in the abdomen and the bowel packed away with moist laparotomy sponges. The dense adhesions of the surface of the ovary to the cecum and small intestine were dissected combination of sharp dissection and blunt technique. This I did visualization of the ovary and the extravasation of brown-colored fluid at base of the ovarian cyst. The cyst wall was then incised and the major portion of the cyst wall was peeled off of the underlying ovarian tissue and passed off of the operative field. Dr. Edith sanders was called for an intraoperative surgical consultation. He inspected the serosal surface of the cecum and adjoining small bowel. He advised no repair of either structure was required. The infundibulopelvic ligament was obscured by the inflammatory changes however the ovarian parenchyma appeared healthy. Bleeding along the base of the cyst was treated with electrocautery and a interrupted suture of 4-0 Vicryl. The pelvis was then copiously irrigated with normal saline and the abdominal packing and self-retaining retractor were removed. Rectus fascia was reapproximated with a running suture of 0 Vicryl extending from the lateral margins and overlapping in the midline. The subcutaneous tissue was reapproximated with interrupted sutures of 3-0 Vicryl. The skin of the Pfannenstiel skin incision was reapproximated with a subcu cuticular suture of 3-0 Vicryl and the underlying subcutaneous tissue infiltrated with the remaining 0.25% Marcaine without epinephrine. Steri-Strips and a dry sterile dressing was applied to the wound. The patient was awakened extubated and transported recovery in stable condition. All sponge lap needle counts correct x2
--- NOTE | 2022-08-15 10:00 | W.ANESPOSTOP ---
Postoperative Evaluation Date, Time and Location Date Performed: 08/15/22 Time Performed: 10:00 Patient Location: PACU Vital Signs Most Recent Imported Vital Signs: Most Recent Vital Signs Temp Pulse Resp BP Pulse Ox 36.1 C L 82 13 106/70 98 08/15/22 09:50 08/15/22 09:50 08/15/22 09:50 08/15/22 09:50 08/15/22 09:50 Pain Score Most Recent Pain Score: Most Recent Pain Score Pain Level 0 08/15/22 09:50 Assessment Mental Status: Arousable with meaningful communication Airway and Respiratory Function: Patent airway with normal (patient baseline) respiratory exam Cardiovascular Function: Hemodynamically Stable Hydration Status: Adequately Hydrated Nausea & Vomiting: No Nausea or Vomiting Pain: Pt. Denies Any Pain Peripheral Nerve Block: Patient did not receive a nerve block
[2022-08-15] MEDS: Ketorolac 30 MG/ML VIAL IVP ×3 (11:19→22:02)
--- NOTE | 2022-08-15 15:12 | DSE_ITS ---
Date of service: 08/15/22 Time of Service: 15:12 DS: Diagnosis Discharge Diagnosis (1) Ovarian cyst: Status: Resolved (2) Hx of exploratory laparotomy: Status: Acute Asessment and Plan: Patient underwent a laparotomy for partial left-sided ovarian torsion on 08/15/2022. Findings at time of surgery old blood in the pelvis from a leaking ovarian cyst approximately 300 cc in the cyst cavity. Cyst wall was removed and the left ovary and fallopian tube were conserved. Discharge Plan Disposition Patient Disposition: Home Condition: Improving Discharge Details Reason For Visit: Left Ovarian Torsion Admit Date/Time: 08/15/22 09:33 Admit Provider: Rhina Borrego Attending Provider: Rhina Borrego [facility]: Patient is a 37-year-old G3, P2 female admitted the morning of surgery via the emergency department after an episode of acute left-sided pelvic pain. Imaging study showed a 10 cm complex cyst in the left adnexa. Exploratory laparotomy w as performed. Patient has a leaking partially torsed ovary. Torsion had resolved at the time of surgery the cyst was decompressed and the cyst wall removed. He had partial small bowel obstruction secondary to the adhesions from the inflammatory changes associated with the leaking torsed ovary. She was observed overnight by the morning of surgery she was tolerating a regular diet without nausea or vomiting at past flatus and was voiding spontaneously Home Meds and New Rx's Prescriptions: New ibuprofen 800 mg tablet 800 mg PO Q8H Qty: 30 1RF oxycodone-acetaminophen [Percocet] 5-325 mg tablet 1 tab PO Q8H PRNQty: 10 0RF docusate sodium [Colace] 100 mg capsule 100 mg PO BID Qty: 30 0RF Discharge Instructions Additional Instructions: Patient has a postop check scheduled with Dr. Borrego on 08/26/2022 [facility]. She was given a work excuse with the pulmonary date of return to work 6 08/29/2022. Stand Alone Forms: DSU Post Surg Rn SurgeryW/Incision Activity:: No heavy lifting Equipment/Supplies:: No Equipment Needed Diet:: As Tolerated Discharge Orders Discharge Orders: Discharge Order (Routine); Ordered 08/16/22 Ordered By: Niurka Rhoades Discharge Data Discharge Date/Time-TO BE ENTERED AT DEPARTURE: 08/16/22 13:30 DS: Summary Time Spent with Patient providing and/or coordinating discharge services: Less than 30 minutes Status at Discharge Functional status at discharge: independent ambulation Overall status at discharge: patient is progressing back to baseline Mental Status: mental status grossly normal Speech and Movement: speech and movement normal Mood: congruent mood Affect: normal affect Exam Psych Mental Status: mental status grossly normal Speech and Movement: speech and movement normal Mood: congruent mood Affect: normal affect DS: Data Vitals/I&O Vitals and I&O: Vital Signs Temperature 97.9 F 08/15/22 10:40 Temperature Source Tympanic 08/15/22 10:40 Pulse 80 08/15/22 13:00 Pulse Rhythm Regular 08/15/22 10:40 Respiratory Rate 16 08/15/22 10:40 Respiratory Effort Normal 08/15/22 10:40 Respiratory Depth Normal 08/15/22 10:40 Respiratory Pattern Normal 08/15/22 10:40 Blood Pressure 106/72 08/15/22 13:00 Blood Pressure Position Standing 08/15/22 03:32 Pulse Oximetry 97 08/15/22 10:40 Respiratory End-tidal CO2 42 08/15/22 10:16 Oxygen Delivery Method Room Air 08/15/22 10:40 Oxygen Flow Rate 0 08/15/22 10:40 Pain Level 0 08/15/22 11:30 Comment Pt MD miguel mesa, fluid bolus started 08/15/22 11:00 Intake & Output 08/14/22 08/15/22 08/15/22 23:59 11:59 23:59 Intake Total 869.333 / 869.333 Output Total 150 / 150 Balance 719.333 / 719.333 Weight 193 lb 9.054 oz Intake: IV 869.333 / 869.333 Output: Urine 100 / 100 Estimated Blood Loss 50 / 50 Other: Urine Color Yellow Urine Appearance Clear Emesis Description None Data Completed and Pending Labs on day of discharge: Labs from last 24 hours 08/15/22 08/15/22 08/15/22 07:28 05:25 04:15 WBC RBC Hgb Hct MCV MCH MCHC RDW Plt Count MPV Immature Gran % Neutrophils % Lymphocytes % Monocytes % Eosinophils % Basophils % Nucleated RBC % Absolute Neutrophils Absolute Lymphocytes Absolute Monocytes Absolute Eosinophils Absolute Basophils Sodium Potassium Chloride Carbon Dioxide Anion Gap BUN Creatinine Est GFR (CKD-EPI 2020) Glucose Calcium Total Bilirubin AST ALT Alkaline Phosphatase Total Protein Albumin Lipase Urine Color Yellow Urine Clarity Sl Cloudy Urine pH 5.5 Ur Specific [place] >= 1.030 H Urine Protein 100 H Urine Ketones Trace H Urine Blood Negative Urine Nitrite Negative Urine Bilirubin Negative Urine Urobilinogen 0.2 Ur Leukocyte Esterase Trace H Urine RBC 0-2 Urine WBC 10-20 H Ur Epithelial Cells Many Urine Crystals Negative Urine Bacteria Moderate Urine Casts Negative Urine Mucus Trace Ur Culture Indicated? No/Sq. Contamination Urine Glucose Negative COVID-19 Source Nasal/Nares SARS-CoV-2 (PCR) Negative Patient ABO/Rh A Positive Antibody Screen NEGATIVE 08/15/22 08/15/22 03:41 03:41 WBC 9.70 RBC 5.08 Hgb 13.5 Hct 41.4 MCV 82 MCH 26.6 L MCHC 32.6 RDW 12.5 Plt Count 314 MPV 8.5 Immature Gran % 0.3 Neutrophils % 50.0 Lymphocytes % 41.3 Monocytes % 6.7 Eosinophils % 1.3 Basophils % 0.4 Nucleated RBC % 0.0 Absolute Neutrophils 4.84 Absolute Lymphocytes 4.01 H Absolute Monocytes 0.65 Absolute Eosinophils 0.13 Absolute Basophils 0.04 Sodium 143 Potassium 3.5 Chloride 106 Carbon Dioxide 26.7 Anion Gap 10.3 BUN 15 Creatinine 0.9 Est GFR (CKD-EPI 2020) 85.50 Glucose 165 H Calcium 8.9 Total Bilirubin 0.2 AST 12 L ALT 14 Alkaline Phosphatase 63 Total Protein 7.8 Albumin 3.8 Lipase 34 Urine Color Urine Clarity Urine pH Ur Specific [place] Urine Protein Urine Ketones Urine Blood Urine Nitrite Urine Bilirubin Urine Urobilinogen Ur Leukocyte Esterase Urine RBC Urine WBC Ur Epithelial Cells Urine Crystals Urine Bacteria Urine Casts Urine Mucus Ur Culture Indicated? Urine Glucose COVID-19 Source SARS-CoV-2 (PCR) Patient ABO/Rh Antibody Screen PFSH All Active Problems (Updated 08/17/22 @ 00:05 by MOSHE THOMPSON) Hx of exploratory laparotomy (Acute) Right sided abdominal pain (Acute) Social History Smoking/Tobacco Use Status: Never Smoking risk assessment performed?: Yes Alcohol Intake: current Alcohol Intake frequency: a few times a month Drug use: Never Substance use type: does not use Do you feel safe at home: Yes Do you feel safe in your relationship?: Yes Female Reproductive History Menstrual Duration of menses: 3-5 days control method: none (Has used OCPs intermittently. Currently not sexually active) and other History History 3 Para 2 Hx # Term Pregnancies 2 Multiple births Hx # Pregnancies Ectopic pregnancies AB induced Hx Number of Living Children 2 AB spontaneous 1 Time Spent with Patient Time Spent with Patient: <45 minutes Time was spent: preparing to see the patient(eg.review tests)
--- NOTE | 2022-08-15 15:21 | PGE_ITS ---
Date of Service Date of service: 08/15/22 Time of Service: 15:21 Assessment and Plan Assessment and plan (1) Hx of exploratory laparotomy: Status: Acute Assessment and plan: Patient will be observed overnight and assisted out of bed and begin taking additional pain medicines to her Toradol. I recommended that she follow-up with me in 2 weeks for postop check prior to returning to work on 08/29/2022. (2) Ovarian cyst: Status: Acute Assessment and plan: Partially torsed left ovarian cyst. Final pathology pending. Subjective Subjective Patient reports: still having pain, no flatus, no bowel movement, nausea (Patient encouraged to begin with clear liquids) and other (Trivedi to gravity drainage) Interval history since last seen: Postop day 0. Status post exploratory laparotomy drainage and removal of ovarian cyst wall after partial ovarian torsion of the left ovary. She had lysis of adhesions of the small bowel and cecum to the left ovarian cyst wall. Patient has been using Toradol with some effect I recommended that she begin Percocet in addition to Toradol for pain relief. She continues to have nausea no emesis. No flatus. Exam Const General: other (Patient uncomfortable grimacing with movement) Nutritional Appearance: obese Orientation: alert, awake and oriented x3 Resp Effort & Inspection: normal respiratory effort Auscultation: clear to auscultation bilaterally Cardio Rate: regular rate Rhythm: regular rhythm GI Inspection: normal to inspection, no abdominal wall ecchymosis and incision (Covered with a dry sterile dressing.) Percussion: normal to percussion Auscultation: absent bowel sounds General: deferred Skin General skin exam: no rashes or lesions noted Extrem General: normal to inspection and full ROM (SCDs in place) Psych Appearance: grossly normal Mental Status: mental status grossly normal Speech and Movement: speech and movement normal Mood: congruent mood Affect: normal affect Attitude: cooperative Thought Process: normal Objective Last Vital Signs Temp 97.9 F 08/15/22 10:40 Pulse 80 08/15/22 13:00 Resp 16 08/15/22 10:40 BP 106/72 08/15/22 13:00 Pulse Ox 97 08/15/22 10:40 Laboratory Results - last 24 hr 08/15/22 08/15/22 08/15/22 03:41 03:41 04:15 WBC 9.70 RBC 5.08 Hgb 13.5 Hct 41.4 MCV 82 MCH 26.6 L MCHC 32.6 RDW 12.5 Plt Count 314 MPV 8.5 Immature Gran % 0.3 Neutrophils % 50.0 Lymphocytes % 41.3 Monocytes % 6.7 Eosinophils % 1.3 Basophils % 0.4 Nucleated RBC % 0.0 Absolute Neutrophils 4.84 Absolute Lymphocytes 4.01 H Absolute Monocytes 0.65 Absolute Eosinophils 0.13 Absolute Basophils 0.04 Sodium 143 Potassium 3.5 Chloride 106 Carbon Dioxide 26.7 Anion Gap 10.3 BUN 15 Creatinine 0.9 Est GFR (CKD-EPI 2020) 85.50 Glucose 165 H Calcium 8.9 Total Bilirubin 0.2 AST 12 L ALT 14 Alkaline Phosphatase 63 Total Protein 7.8 Albumin 3.8 Lipase 34 Urine Color Yellow Urine Clarity Sl Cloudy Urine pH 5.5 Ur Specific [place] >= 1.030 H Urine Protein 100 H Urine Ketones Trace H Urine Blood Negative Urine Nitrite Negative Urine Bilirubin Negative Urine Urobilinogen 0.2 Ur Leukocyte Esterase Trace H Urine RBC 0-2 Urine WBC 10-20 H Ur Epithelial Cells Many Urine Crystals Negative Urine Bacteria Moderate Urine Casts Negative Urine Mucus Trace Ur Culture Indicated? No/Sq. Contamination Urine Glucose Negative COVID-19 Source SARS-CoV-2 (PCR) Patient ABO/Rh Antibody Screen 08/15/22 08/15/22 05:25 07:28 WBC RBC Hgb Hct MCV MCH MCHC RDW Plt Count MPV Immature Gran % Neutrophils % Lymphocytes % Monocytes % Eosinophils % Basophils % Nucleated RBC % Absolute Neutrophils Absolute Lymphocytes Absolute Monocytes Absolute Eosinophils Absolute Basophils Sodium Potassium Chloride Carbon Dioxide Anion Gap BUN Creatinine Est GFR (CKD-EPI 2020) Glucose Calcium Total Bilirubin AST ALT Alkaline Phosphatase Total Protein Albumin Lipase Urine Color Urine Clarity Urine pH Ur Specific [place] Urine Protein Urine Ketones Urine Blood Urine Nitrite Urine Bilirubin Urine Urobilinogen Ur Leukocyte Esterase Urine RBC Urine WBC Ur Epithelial Cells Urine Crystals Urine Bacteria Urine Casts Urine Mucus Ur Culture Indicated? Urine Glucose COVID-19 Source Nasal/Nares SARS-CoV-2 (PCR) Negative Patient ABO/Rh A Positive Antibody Screen NEGATIVE Time Spent with Patient Time Spent with Patient: <25 minutes Time was spent: counseling the patient and care coordination
[2022-08-15] MEDS: oxyCODONE 5 mg/Acetaminophen 325 mg TAB PO ×2 (15:22→20:35)
[2022-08-15] MEDS: Docusate Sodium 100 MG CAP PO (20:35)
[2022-08-15] MEDS: Normal Saline Flush 10 ML SYR (20:40)
[2022-08-15] MEDS: Normal Saline Flush 10 ML SYR IVP (22:01)
[2022-08-16 01:25] VITALS: BP 114/62; PULSE 80; RESP 16; TEMP 36.5; O2SAT 98
[2022-08-16] MEDS: Ketorolac 30 MG/ML VIAL IVP (04:02)
[2022-08-16] MEDS: Normal Saline Flush 10 ML SYR IVP ×2 (04:03→06:08)
[2022-08-16] MEDS: Ondansetron 4 MG/2 ML VIAL IVP (06:08)
[2022-08-16] MEDS: oxyCODONE 5 mg/Acetaminophen 325 mg TAB PO (06:09)
[2022-08-16 06:26] VITALS: BP 112/60; PULSE 76; RESP 18; TEMP 36.8
[2022-08-16 06:56] LABS: HCT 31.9 % (36.0-46.0); HGB 10.5 g/dL (11.2-15.7); MCH 27.2 pg (27.0-33.0); MCHC 32.9 % (32.0-36.0); MCV 83 fL (80-95); Platelet Count 241 10^3/uL (130-400); RBC 3.86 10^6/uL (3.93-5.22); RDW 12.9 % (11.7-14.6); RDW-SD 38.8 fL; WBC 13.18 10^3/uL (4.4-10.8)
[2022-08-16 07:06] LABS: Anion Gap 6.4 mmol/L (3-11); BUN 7 mg/dL (7-18); CO2 28.6 mmol/L (21.0-32.0); CREATININE 0.8 mg/dL (0.55-1.02); Calcium 8.5 mg/dL (8.5-10.1); Chloride 108 mmol/L (98-107); Estimated GFR 98.48 (mL/min/1.73m2); Glucose 112 mg/dL (74-106); Potassium 3.7 mmol/L (3.5-5.1); Sodium 143 mmol/L (136-145)
[2022-08-16 07:55] VITALS: BP 117/96; PULSE 61; RESP 14; TEMP 36.2; O2SAT 96
--- NOTE | 2022-08-16 09:03 | PGE_ITS ---
Date of Service Date of service: 08/16/22 Time of Service: 09:04 Assessment and Plan Assessment and plan (1) Hx of exploratory laparotomy: Status: Acute Assessment and plan: Patient is postoperative day #1 status post exploratory laparotomy for left ovarian cystectomy. Overall she is doing well. Her pain is improved. She has been ambulating, tolerating regular diet and oral pain medication. My anticipation would be for discharge home later today. Hemoglobin is stable at 10.5. (2) Ovarian cyst: Status: Acute Subjective Subjective Patient reports: no new complaints, pain is less, tolerating liquids well, tolerating a regular diet and flatus; denies diarrhea, nausea, vomiting or fever Exam Narrative Exam Narrative: Patient is alert and oriented, no acute distress. Pain is improved. Eating, tolerating regular diet. HENMT Head: normal to inspection Eyes General: appearance normal, both eyes and all related structures Neck Neck: normal visual inspection and supple Resp Effort & Inspection: normal respiratory effort, no audible wheezes and no cough Cardio Rate: regular rate Rhythm: regular rhythm GI Inspection: normal to inspection, non-distended, incision (Clean, dry, intact) and obesity Palpation: not firm and no guarding Skin General skin exam: no rashes or lesions noted Extrem General: normal to inspection and no clubbing, cyanosis or edema Objective Last Vital Signs Temp 97.2 F L 08/16/22 07:55 Pulse 61 08/16/22 07:55 Resp 14 08/16/22 07:55 BP 117/96 H 08/16/22 07:55 Pulse Ox 96 08/16/22 07:55 Laboratory Results - last 24 hr 08/16/22 08/16/22 06:45 06:45 WBC 13.18 H RBC 3.86 L Hgb 10.5 L D Hct 31.9 L MCV 83 MCH 27.2 MCHC 32.9 RDW 12.9 Plt Count 241 MPV 9.0 Sodium 143 Potassium 3.7 Chloride 108 H Carbon Dioxide 28.6 Anion Gap 6.4 BUN 7 Creatinine 0.8 Est GFR (CKD-EPI 2020) 98.48 Glucose 112 H Calcium 8.5 Time Spent with Patient Time Spent with Patient: <25 minutes Time was spent: preparing to see the patient(eg.review tests), obtaining and/or reviewing separately otained hiistory, ordering medications,tests, procedures, referring, communicating with other health behavioral health care coordinator, indepentently interpreting results and counseling the patient
--- NOTE | 2022-08-16 09:21 | DSE_ITS ---
Date of service: 08/16/22 Time of Service: 09:21 DS: Diagnosis Discharge Diagnosis (1) Hx of exploratory laparotomy: Status: Acute Asessment and Plan: Postoperative day #1 status post exploratory laparotomy for left ovarian cystectomy due to hemorrhagic cyst and possible torsion. Discharge home today. No heavy lifting for 6 weeks. Follow-up in the office with Dr. Borrego as scheduled in 1 and 6 weeks. (2) Ovarian cyst: Status: Acute Discharge Plan Disposition Patient Disposition: Home Condition: Improving Discharge Details Reason For Visit: Left Ovarian Torsion Admit Date/Time: 08/15/22 09:33 Admit Provider: Rhina Borrego Attending Provider: Rhina Borrego [facility] Patient is a 37-year-old G3, P2 female admitted the morning of surgery via the emergency department after an episode of acute left-sided pelvic pain. Imaging study showed a 10 cm complex cyst in the left adnexa. Exploratory laparotomy was performed. Patient has a leaking partially torsed ovary. Torsion had resolved at the time of surgery the cyst was decompressed and the cyst wall removed. He had partial small bowel obstruction secondary to the adhesions from the inflammatory changes associated with the leaking torsed ovary. She was observed overnight by the morning of surgery she was tolerating a regular diet without nausea or vomiting at past flatus and was voiding spontaneously Home Meds and New Rx's Prescriptions: New ibuprofen 800 mg tablet 800 mg PO Q8H Qty: 30 1RF oxycodone-acetaminophen [Percocet] 5-325 mg tablet 1 tab PO Q8H PRNQty: 10 0RF docusate sodium [Colace] 100 mg capsule 100 mg PO BID Qty: 30 0RF Discharge Instructions Additional Instructions: Patient has a postop check scheduled with Dr. Borrego on 08/26/2022 [facility] She was given a work excuse with the pulmonary date of return to work 6 08/29/2022. Activity:: No heavy lifting Equipment/Supplies:: No Equipment Needed Diet:: As Tolerated Discharge Orders Discharge Orders: Discharge Order (Routine); Ordered 08/16/22 Ordered By: Niurka Rhoades DS: Summary Time Spent with Patient providing and/or coordinating discharge services: Greater than 30 minutes Status at Discharge Functional status at discharge: independent ambulation Overall status at discharge: patient is progressing back to baseline Mental Status: mental status grossly normal Speech and Movement: speech and movement normal Mood: congruent mood Affect: normal affect Exam Narrative Exam Narrative: Please see physical exam from progress note dated 08/16/2022 Psych Mental Status: mental status grossly normal Speech and Movement: speech and movement normal Mood: congruent mood Affect: normal affect DS: Data Vitals/I&O Vitals and I&O: Vital Signs Temperature 97.2 F L 08/16/22 07:55 Temperature Source Tympanic 08/16/22 07:55 Pulse 61 08/16/22 07:55 Pulse Rhythm Regular 08/16/22 07:55 Respiratory Rate 14 08/16/22 07:55 Respiratory Effort Normal 08/16/22 07:55 Respiratory Depth Normal 08/16/22 07:55 Respiratory Pattern Normal 08/16/22 07:55 Blood Pressure 117/96 H 08/16/22 07:55 Blood Pressure Position Standing 08/15/22 03:32 Pulse Oximetry 96 08/16/22 07:55 Respiratory End-tidal CO2 42 08/15/22 10:16 Oxygen Delivery Method Room Air 08/16/22 07:55 Oxygen Flow Rate 0 08/16/22 07:55 Pain Level 2 08/15/22 16:59 Comment Pt estephania aleman MD paged, fluid bolus started 08/15/22 11:00 Intake & Output 08/15/22 08/15/22 08/16/22 11:59 23:59 11:59 Intake Total 869.333 / 869.333 340 / 340 Output Total 150 / 1050 900 / 1050 625 / 625 Balance 719.333 / -180.667 -900 / -180.667 -285 / -285 Weight 193 lb 9.054 oz Intake: IV 869.333 / 869.333 Oral 340 / 340 Output: Urine 100 / 1000 900 / 1000 625 / 625 Estimated Blood Loss 50 / 50 Other: Urine Color Yellow Yellow Dark Ree Urine Appearance Clear Clear Cloudy Emesis Description None Data Completed and Pending Labs on day of discharge: Labs from last 24 hours 08/16/22 08/16/22 06:45 06:45 WBC 13.18 H RBC 3.86 L Hgb 10.5 L D Hct 31.9 L MCV 83 MCH 27.2 MCHC 32.9 RDW 12.9 Plt Count 241 MPV 9.0 Sodium 143 Potassium 3.7 Chloride 108 H Carbon Dioxide 28.6 Anion Gap 6.4 BUN 7 Creatinine 0.8 Est GFR (CKD-EPI 2020) 98.48 Glucose 112 H Calcium 8.5 PFSH All Active Problems (Updated 08/15/22 @ 06:59 by Ernie Mack DO) Hx of exploratory laparotomy (Acute) Ovarian cyst (Acute) Right sided abdominal pain (Acute) Social History Smoking/Tobacco Use Status: Never Smoking risk assessment performed?: Yes Alcohol Intake: current Alcohol Intake frequency: a few times a month Drug use: Never Substance use type: does not use Do you feel safe at home: Yes Do you feel safe in your relationship?: Yes Female Reproductive History Menstrual Duration of menses: 3-5 days control method: none (Has used OCPs intermittently. Currently not sexually active) and other History History 3 Para 2 Hx # Term Pregnancies 2 Multiple births Hx # Pregnancies Ectopic pregnancies AB induced Hx Number of Living Children 2 AB spontaneous 1 Time Spent with Patient Time Spent with Patient: <45 minutes Time was spent: preparing to see the patient(eg.review tests), obtaining and/or reviewing separately otained hiistory, ordering medications,tests, procedures, referring, communicating with other health home care consultant, indepentently interpreting results and counseling the patient
[2022-08-16] MEDS: Ibuprofen 600 MG TAB PO (10:47)
== END 2022-08-16 13:30 | disposition home or self-care (01) ==
LOC: ER 07:04 → SUR 07:53 → OBS 10:54
PROVIDERS: Admitting Provider Obstetrics & Gynecology Gynecology; Emergency Provider Student in an Organized Health Care Education/Training Program; PCP Family Medicine; Visit Provider Obstetrics & Gynecology Gynecology
PROC: (CPT 49000; principal; 2022-08-15 08:30)
DX: N83.202 Unspecified ovarian cyst, left side (principal); Z20.822 Contact with and (suspected) exposure to COVID-19; N73.6 Female pelvic peritoneal adhesions (postinfective)
CPT/HCPCS: 58925; 58740; 36415; 80048; 80053; 81025; 83690; 85027; 86850; 86900; 86901; 87635; 88305; 96361; 96374; 96375; 96376; 99285; 74177; 81003; 81015; 85025; 88104; J0690; J1100; J1885; J2250; J2270; J2405; J2704; J3010; J3490

== ENCOUNTER 2022-11-03 01:49 | Outpatient (CLI) | payer MEDICAID, SELFPAY ==
--- NOTE | 2022-11-03 08:30 | DI.US_ITS ---
Exam(s) US PELVIS TRANSVAGINAL EXAM: US PELVIS TRANSVAGINAL CLINICAL HISTORY: pelvis pain R sided, Hx of ovarian cyst,R10.2. TECHNIQUE: Transabdominal and transvaginal pelvic ultrasound was performed using standard protocol. COMPARISON: US PELVIS TRANSVAG from 12/14/[address] ABDOMEN PELVIS CTA from 10/19/[address] ABDOMEN PELVIS W from 08/15/2022 FINDINGS: UTERUS: Position: Anteverted. Size: 7.1 long by 5.8 AP by 5.7 transverse cm Endometrium: 0.8 cm. Normal for patient's menstrual status. Myometrium: Unremarkable. Cervix: Unremarkable. OVARIES: Right: 3.1 x 1.9 x 3.6 cm Cyst or mass: No suspicious cystic or solid masses. Left: 4.9 x 4.6 x 4.8 cm Cyst or mass: There is a 3.7 x 3.5 x 5.2 cm cyst on the left ovary with low level internal echoes. DOPPLER: Color: Symmetric and uniform flow to both ovaries. CUL-DE-SAC: Free fluid: None. Other: None. IMPRESSION: 1. Normal-appearing uterus with endometrial stripe within normal limits. 2. There has been interval decrease in size of the cyst seen in the left ovary since the CT scan from 08/15/2022. The complex cystic lesion now measures 3.7 x 3.5 x 5.2 cm. A follow-up pelvic ultrasound in 6 8 weeks is recommended for re-evaluation. Alternatively an MRI may be obtained for further beba luation. DATA REPOSITORY:
== END 2022-11-03 02:09 ==
LOC: DI 01:50
PROVIDERS: PCP Family Medicine; Visit Provider Obstetrics & Gynecology Gynecology
DX: R10.2 Pelvic and perineal pain (principal); N83.292 Other ovarian cyst, left side
CPT/HCPCS: 76830; 76856

== ENCOUNTER → 2023-06-15 14:17 | Outpatient (CLI) | payer MEDICAID, SELFPAY ==
--- NOTE | 2023-06-15 | DI.RAD_ITS ---
Exam(s) XR CHEST 2V PA LATERAL EXAM: XR CHEST 2V PA LATERAL CLINICAL HISTORY: COUGH R05.9 TECHNIQUE: 2D digital imaging was performed of the chest. Two images were obtained. PA and lateral views were obtained. COMPARISON: CR CHEST 2 VIEWS PA,LAT from 05/26/2015 FINDINGS: MEDIASTINUM: Normal. HEART: Normal. PULMONARY VASCULATURE: Normal. LUNGS: Clear. PLEURAL SPACE: No pleural effusion or pneumothorax. BONE:Within normal limits for the patient's age. OTHER FINDINGS:Normal. IMPRESSION: No acute pulmonary findings. DATA REPOSITORY: RADIATION DOSE DELIVERED:
== END ==
PROVIDERS: PCP Family Medicine; Visit Provider Physician Assistant Medical
DX: R05.9 Cough, unspecified (principal)
CPT/HCPCS: 71046

== ENCOUNTER 2023-06-15 14:30 | Outpatient (REF) | payer MEDICAID, SELFPAY ==
[2023-06-15 15:06] LABS: Source Nasal/Nares
[2023-06-15 15:42] LABS: COVID-19 PCR Negative (Negative)
== END 2023-06-15 14:31 | disposition home or self-care (01) ==
LOC: LBN 14:30
PROVIDERS: PCP Family Medicine; Visit Provider Physician Assistant Medical
DX: R05.8 Other specified cough (principal); Z20.822 Contact with and (suspected) exposure to COVID-19
CPT/HCPCS: 87635

== ENCOUNTER → 2023-10-20 00:18 | Outpatient (CLI) | payer MEDICAID, SELFPAY ==
--- NOTE | 2023-10-20 08:00 | DI.US_ITS ---
Exam(s) US PELVIS TRANSVAGINAL EXAM: US PELVIS TRANSVAGINAL CLINICAL HISTORY: hx of ovarian cyst-interval f/u,PELVIC PAIN,R10.2 TECHNIQUE: Transabdominal and transvaginal imaging was performed using standard protocol. COMPARISON: US US PELVIS TRANSVAGINAL from 11/03/2022 FINDINGS: UTERUS: Mildly retroverted. Cm Endometrium: mm Myometrium: Unremarkable. Cervix: Unremarkable. OVARIES: Right: Cyst or mass: None. Left: Cyst or mass: Involuting follicle. Previously noted hypoechoic 5.2 centimeter lesion no longer present. DOPPLER: Color: Symmetric and uniform flow to both ovaries. No hyperemia. CUL-DE-SAC: Free fluid: None. IMPRESSION: 1. Normal-appearing uterus with endometrial stripe within normal limits. 2. Unremarkable bilateral ovaries. DATA REPOSITORY:
== END ==
PROVIDERS: PCP Family Medicine; Visit Provider Obstetrics & Gynecology Gynecology
DX: R10.2 Pelvic and perineal pain
CPT/HCPCS: 76830; 76856

== ENCOUNTER 2023-10-20 02:44 | Outpatient (CLI) | payer MEDICAID, SELFPAY ==
[2023-10-20 13:45] LABS: ALT 17 U/L (14-59); AST 11 U/L (15-37); Albumin 3.9 g/dL (3.4-5.0); Alkaline Phosphatase 61 U/L (46-116); Anion Gap 9.4 mmol/L (3-11); BUN 12 mg/dL (7-18); Bilirubin, Total 0.4 mg/dL (0.2-1.0); CO2 26.6 mmol/L (21.0-32.0); Calcium 8.9 mg/dL (8.5-10.1); Calculated LDL 81 mg/dL (<100); Chloride 105 mmol/L (98-107); Cholesterol 140 mg/dL (<200); Estimated GFR 74.88 (mL/min/1.73m2); Glucose 98 mg/dL (74-106); HDL Cholesterol 39 mg/dL (40-60); Potassium 3.5 mmol/L (3.5-5.1); Sodium 141 mmol/L (136-145); TSH (W/Ref FT4) 1.58 uIU/mL (0.36-3.74); Total Protein 7.7 g/dL (6.4-8.2); Triglyceride 101 mg/dL (<150)
== END 2023-10-20 02:45 | disposition home or self-care (01) ==
LOC: LBO 02:44
PROVIDERS: PCP Family Medicine; Visit Provider Obstetrics & Gynecology Gynecology
DX: I10 Essential (primary) hypertension (principal); R10.2 Pelvic and perineal pain; B96.89 Other specified bacterial agents as the cause of diseases classified elsewhere
CPT/HCPCS: 36415; 80053; 80061; 84443

== ENCOUNTER 2023-11-03 14:47 | Outpatient (CLI) | payer MEDICAID, SELFPAY ==
[2023-11-03 16:49] LABS: Bilirubin Negative (Negative); Blood Negative (Negative); Clarity Clear (Clear); Glucose Negative (Negative); Ketones Negative (Negative); Leukocyte Esterase Negative (Negative); Nitrite Negative (Negative); Urobilinogen 0.2 mg/dL (Up to 0.2)
== END 2023-11-03 14:48 | disposition home or self-care (01) ==
LOC: LBO 14:48
PROVIDERS: Obstetrics & Gynecology Gynecology; PCP Nurse Practitioner Family; Visit Provider Nurse Practitioner Family
DX: Z30.45 Encounter for surveillance of transdermal patch hormonal contraceptive device (principal)
CPT/HCPCS: 36415; 80053; 82306; 81003; 83036; 84443; 85025

== ENCOUNTER 2023-11-08 05:05 | Outpatient (CLI) | payer MEDICAID, SELFPAY ==
[2023-11-08 16:01] LABS: Abs Immature Grans 0.02 10^3/uL (0.0-0.06); Absolute Basophil Count 0.03 10^3/uL (0.0-0.2); Absolute Eosinophil Count 0.06 10^3/uL (0.0-0.7); Absolute Lymphocyte Count 2.03 10^3/uL (1.2-3.4); Absolute Monocyte Count 0.51 10^3/uL (0.1-0.8); Absolute Neutrophil Count 5.39 10^3/uL (1.2-6.7); Basophils % 0.4 %; Eosinophils % 0.7 %; HCT 38.1 % (36.0-46.0); HGB 12.4 g/dL (11.2-15.7); Immature Grans % 0.2 %; Lymphocytes % 25.2 %; MCH 26.1 pg (27.0-33.0); MCHC 32.5 % (32.0-36.0); MCV 80 fL (80-95); MPV 9.1 fL (8.0-11.0); Monocytes % 6.3 %; Neutrophils % 67.2 %; Platelet Count 303 10^3/uL (130-400); RBC 4.76 10^6/uL (3.93-5.22); RDW 13.2 % (11.7-14.6); RDW-SD 38.5 fL; WBC 8.04 10^3/uL (4.4-10.8)
[2023-11-08 16:30] LABS: Hemoglobin A1C 5.7 % (<5.7)
[2023-11-08 16:31] LABS: ALT 20 U/L (14-59); AST 11 U/L (15-37); Albumin 3.7 g/dL (3.4-5.0); Alkaline Phosphatase 57 U/L (46-116); Anion Gap 8.8 mmol/L (3-11); BUN 15 mg/dL (7-18); Bilirubin, Total 0.4 mg/dL (0.2-1.0); CO2 27.2 mmol/L (21.0-32.0); CREATININE 1.1 mg/dL (0.55-1.02); Calcium 8.6 mg/dL (8.5-10.1); Chloride 104 mmol/L (98-107); Estimated GFR 66.78 (mL/min/1.73m2); Glucose 89 mg/dL (74-106); Sodium 140 mmol/L (136-145); TSH (W/Ref FT4) 1.76 uIU/mL (0.36-3.74); Total Protein 7.4 g/dL (6.4-8.2)
[2023-11-08 17:32] LABS: Vitamin D 25 Total 32.8 ng/mL (30-100)
== END 2023-11-08 05:06 | disposition home or self-care (01) ==
LOC: LBO 05:05
PROVIDERS: PCP Nurse Practitioner Family; Visit Provider Nurse Practitioner Family
DX: I10 Essential (primary) hypertension (principal); E78.5 Hyperlipidemia, unspecified; Z00.00 Encounter for general adult medical examination without abnormal findings; E55.9 Vitamin D deficiency, unspecified
CPT/HCPCS: 36415; 80053; 82306; 83036; 84443; 85025

== ENCOUNTER 2024-01-15 17:51 | Outpatient (REF) | payer MEDICAID, SELFPAY ==
--- NOTE | 2024-01-15 16:31 | PAPFT_PTH ---
PATIENT: Mackenzie Rust LOC: [facility] U#:[id number] AGE/SX: 38/F ROOM: RE01/15/[address]: Layl Aguilar : 1985 BED: DIS: 01/15/2024 SPEC #: [id number] RECD: 01/16/24 13:21 STATUS: CRISTY RERossy #: [id number] ERASTO: 01/15/24 16:[address]: Laly Aguilar DEPT: [facility] Cytology RECD BY: Aislinn Lao Tissues: 1 - CX/ENDOCX FOR PAP SMEARS Procedures: PAP THIN PREP/UVM Screening HPV DNA PROBE Comments: [id number] (HPV 16 & 18/45)
--- OUTSIDE RECORDS SUMMARY | 2024-01-15 17:52 | XMS_ITS | Referral Summary ---
Author Organization [facility] Address [address] [place] [address] Care Team Providers Care Pouako Kura Kaupapa Maori Name Role Phone Unknown, Provider Primary Care Provider Allergies Active Allergy Reactions Criticality Noted Date Comments Promethazine Medium 04/13/2022 akathisia Medications No known medications Active Problems Problem Noted Date Diagnosed Date Other specified anxiety disorders 04/13/2022 Social History Tobacco Use Types Packs/Day Years Used Date Smoking Tobacco: Never Assessed Sex and Gender Information Value Date Recorded Sex Assigned at Not on file Gender Identity Not on file Sexual Orientation Not on file Plan of Treatment Not on file Care Teams Pouako Kura [place] Maori Relationship Specialty Start Date End Date Unknown, Provider, PCP - General 04/22/15
--- OUTSIDE RECORDS SUMMARY | 2024-01-15 17:52 | XMS_ITS | Encounter Summary ---
Author Organization [facility] Address [address] [place] [address] Care Team Providers Care Care Transport Nurse Name Role Phone Unavailable Primary Care Provider Unavailabl e Encounter Details Date Type Department Care Team (Late st Contact Info) Description 08/07/2009 Results Only [facility] Laboratory Services - [facility] [address], [place] [id number] Francine Harley MD [address] [place] [id number] Social History Tobacco Use Types Packs/Day Years Used Date Smoking Tobacco: Never Assessed Sex and Gender Information Value Date Recorded Sex Assigned at Not on file Gender Identity Not on file Sexual Orientation Not on file documented as of this encounter Plan of Treatment Not on file documented as of this encounter Procedures Procedure Name Priority Date/Time Associated Diagnosis Comments CYTOPATHOLOGY Routine 08/07/2009 0:00 EST documented in this encounter Results * CYTOPATHOLOGY (08/07/2009 0:00 EST) Pathology Report: CYTOPATHOLOGY REPORT ? Reports generated via electronic interface contain original data; ? however they are lacking the format of the original report. ? Caution should be taken when reading/interpreti ng unformatted reports. ? Name: ? TOI, ZACHERY Sadler ? Accession #: ? [id number] ? : ? 1985 (Age: 24) ??F ?Collect Date: ? 08/07/2009 ? Location: ? [facility] ? Receive Date: ? 08/10/2009 ? Provider: ?FRANCINE HARLEY MD ? Copy to: ? Specimen/Source: ?Pap Test, Cervix/Endocervix, ThinPrep Imaging System ? with manual evaluation ? Last Menstrual Period: ? 2/18/10 ? Previous Gynecologic Pathology: ? ASC-US: Hx ? Other: ? HPVA - HPV testing requested if ASC-US on the current ThinPrep Pap test. ? SPECIMEN ADEQUACY ? Satisfactory for Evaluation ? - transformation zone component present ? GENERAL CATEGORIZATION ? Negative for Intraepithelial Lesion or Malignancy ? Document reviewed and electronically signed by: ? Greg Menendez, CT(ASCP) ? Report Date: ??08/11/2009 13:49 ? End of Report ? [facility] 08/07/2009 08/10/2009 Francine Harley MD PATHOLOGY ORDERABLES [facility] [address] [place] [address] documented in this encounter Visit Diagnoses Not on filedocumented in this encounter
--- OUTSIDE RECORDS SUMMARY | 2024-01-15 17:52 | XMS_ITS | Encounter Summary ---
Author Organization [facility] Address [address] [place] [address] Care Team Providers Care Yarn Carrier Name Role Phone Unavailable Primary Care Provider Unavailabl e Encounter Details Date Type Department Care Team (Late st Contact Info) Description 08/14/2006 Results Only [facility] [address] [place] [address] Venkat Tilley, MACHO [address] [facility] [address] [place] [address] Social History Tobacco Use Types Packs/Day Years Used Date Smoking Tobacco: Never Assessed Sex and Gender Information Value Date Recorded Sex Assigned at Not on file Gender Identity Not on file Sexual Orientation Not on file documented as of this encounter Plan of Treatment Not on file documented as of this encounter Procedures Procedure Name Priority Date/Time Associated Diagnosis Comments CYTOPATHOLOGY Routine 08/14/2006 0:00 EST documented in this encounter Results * CYTOPATHOLOGY (08/14/2006 0:00 EST) Pathology Report: CYTOPATHOLOGY REPORT Reports generated via electronic interface contain original data; however they are lacking the format of the original report. Caution should be taken when reading/interpreti ng unformatted reports. Name: ? ZACHERY RUST ? Accession #: ? [id number] : ? 1985 (Age: 21) ??F ?Collect Date: ? 08/14/2006 Location: ? [facility] ? Receive Date: ? 08/15/2006 Provider: ?VENKAT TILLEY DIRECTOR OF DIVERSITY AND INCLUSION Copy to: ? Specimen/Source: ?ThinPrep Pap Test, Cervix/Endocervix, processed on KaleidoscopePrep Imaging System, with manual evaluation Last Menstrual Period: ? 07/28/06 Other: ? HPVA - HPV testing requested if ASC-US on the current ThinPrep Pap test. ? SPECIMEN ADEQUACY ? Satisfactory for Evaluation - transformation zone component present GENERAL CATEGORIZATION ? Negative for Intraepithelial Lesion or Malignancy ? Document reviewed and electronically signed by: ? FRANDY Desai(ASCP) ? Report Date: ??08/16/2006 14:15 End of Report [facility] 08/14/2006 08/15/2006 Venkat Tilley NP PATHOLOGY ORDERABLES [facility] [address] [place] [address] documented in this encounter Visit Diagnoses Not on filedocumented in this encounter
--- OUTSIDE RECORDS SUMMARY | 2024-01-15 17:52 | XMS_ITS | Encounter Summary ---
Author Organization [facility] Address [address] [place] [address] Care Team Providers Care Print Color Operator Name Role Phone Unknown, Provider Primary Care Provider [phone] Encounter Details Date Type Department Care Team (Late st Contact Info) Description 08/16/2022 Lab Requisition [facility] Pathology & Laboratory Medicine - [facility] [address] [place] [address] Rhina Ernandez MD [address] [place] [address] [address] [place] [address] Unspecified ovarian cyst, unspecified side Social History Tobacco Use Types Packs/Day Years Used Date Smoking Tobacco: Never Assessed Sex and Gender Information Value Date Recorded Sex Assigned at Not on file Gender Identity Not on file Sexual Orientation Not on file documented as of this encounter Plan of Treatment Not on file documented as of this encounter Procedures Procedure Name Priority Date/Time Associated Diagnosis Comments SURGICAL PATHOLOGY Today 08/15/2022 8: 30 EST Unspecified ovarian cyst, unspecified side documented in this encounter Results * SURGICAL PATHOLOGY (08/15/2022 8:30 EST) Note to Patient The following pathology results have been interpreted by your pathologist and may be available to you before your health provider has had the opportunity to review them. Please allow time for your provider to receive these results and explore management options, if applicable. 08/18/2022 8:38 EST [facility] Final Diagnosis A. OVARY, LEFT, CYST WALL, CYSTECTOMY: - Endometriotic cyst. 08/18/2022 8:38 [facility] Attestation By the signature below, the attending physician certifies that they have 1) personally conducted a gross and/or microscopic examination of the described specimen(s), and/or personally interpreted the results of laboratory testing of the described specimen(s), and 2) personally rendered or confirmed the above diagnosis. 08/18/2022 8:38 [facility] at 0838 Clinical History Left ovarian cyst 08/18/2022 8:38 [facility] Gross Description A. Received in formalin labelled with proper patient identification (initials C, J) and left ovarian cyst wall is a 7.0 x 4.3 x 0.4 cm ovoid fragment of soft salgado-shafer to red-brown tissue. One surface is smooth and the opposite surface is granular. No excrescences or firm areas identified. Mechanical Ordnance Assembler sections are submitted in A1-A 3. KYLAH WOODS(ASCP) 08/16/2022 10:06 08/18/2022 8:38 [facility] Performing Lab [facility] 08/18/2022 8:38 [facility] Scanned Images 08/18/2022 8:38 [facility] Tissue ENTIRE OVARY / Unknown 08/15/2022 8:30 EST 08/16/2022 8:57 EST Rhina Ernandez MD PATHOLOGY ORDERABLES [facility] [address] [place] [address] documented in this encounter Visit Diagnoses Diagnosis Unspecified ovarian cyst, unspecified side documented in this encounter Care Teams Print Color Operator Relationship Specialty Start Date End Date Unknown, Provider, PCP - General 04/22/15 documented as of this encounter
--- OUTSIDE RECORDS SUMMARY | 2024-01-15 17:52 | XMS_ITS | Encounter Summary ---
Author Organization [facility] Address [address] [place] [address] Care Team Providers Care Repairer Helper Name Role Phone Unavailable Primary Care Provider Unavailabl e Encounter Details Date Type Department Care Team (Late st Contact Info) Description 08/01/2012 Results Only [facility] Laboratory Services - [facility] ([facility]) [address] [place], [place] [id number] Mario Roberson NP [address] [place] [address] Social History Tobacco Use Types Packs/Day Years Used Date Smoking Tobacco: Never Assessed Sex and Gender Information Value Date Recorded Sex Assigned at Not on file Gender Identity Not on file Sexual Orientation Not on file documented as of this encounter Plan of Treatment Not on file documented as of this encounter Procedures Procedure Name Priority Date/Time Associated Diagnosis Comments PAP TEST- RESULT ONLY Routine 08/01/2012 0:00 EST documented in this encounter Results * PAP TEST- RESULT ONLY (08/01/2012 0:00 EST) Pathology Report: CYTOPATHOLOGY REPORT Reports generated via electronic interface contain original data; however they are lacking the format of the original report. Caution should be taken when reading/interpreti ng unformatted reports. Name: ? ZACHERY RUST ? Accession #: ? [id number] : ? 1985 (Age: 27) ??F ?Collect Date: ? 08/01/2012 Location: ? [facility] ? Receive Date: ? 08/03/2012 Provider: ?MARIO ROBERSON DIAMOND BROKER Copy to: ? Specimen/Source: ?Pap Test, Cervix, ThinPrep Imaging System with manual evaluation Last Menstrual Period: ? 07/13/09 Hormonal/Contracep tive Status: ? Condoms Yes: nuvaring ? SPECIMEN ADEQUACY ? Satisfactory for Evaluation - transformation zone component present GENERAL CATEGORIZATION ? Negative for Intraepithelial Lesion or Malignancy INTERPRETATION ? Shift in felix present suggestive of bacterial vaginosis. ? Document reviewed and electronically signed by: ? FRANDY Orosco(ASCP) ? Report Date: ??08/07/2012 09:57 End of Report [facility]UN[facility] 08/01/2012 08/03/2012 Mario Roberson NP PATHOLOGY ORDERABLES [facility] [address] [place] [address] documented in this encounter Visit Diagnoses Not on filedocumented in this encounter
--- OUTSIDE RECORDS SUMMARY | 2024-01-15 17:52 | XMS_ITS | Encounter Summary ---
Author Organization [facility] Address [address] [place] [address] Care Team Providers Care Environment Coordinator Name Role Phone Unknown, Provider Primary Care Provider [phone] Reason for Visit * Reason Comments Anxiety Encounter Details Date Type Department Care Team ([facility] st Contact Info) Description 04/13/2022 8:00 EDT Office Visit [facility] Child Psychiatry - [address] [address] Doron Thomson MD [address] [place] [phone] Other specified anxiety disorders (Primary Dx) Social History Tobacco Use Types Packs/Day Years Used Date Smoking Tobacco: Never Assessed Sex and Gender Information Value Date Recorded Sex Assigned at Not on file Gender Identity Not on file Sexual Orientation Not on file documented as of this encounter Plan of Treatment Not on file documented as of this encounter Visit Diagnoses Diagnosis Other specified anxiety disorders- Primary documented in this encounter Care Teams Environment Coordinator Relationship Specialty Start Date End Date Unknown, Provider, PCP - General 04/22/15 documented as of this encounter
--- OUTSIDE RECORDS SUMMARY | 2024-01-15 17:52 | XMS_ITS | Clinical Summary ---
Author Organization [facility] Address [address] [place] [address] Care Team Providers Care Banking Analyst Name Role Phone Unknown, Provider Primary Care [...] Orientation Not on file Plan of Treatment Health Maintenance Due Date Last Done Comments Hepatitis C Screen 1985 Hepatitis B Vaccine (1 of 3 - 19+ 3-dose series) 06/20 COVID-19 Vaccine ( season) 2023 Care Teams Banking Analyst Relationship Specialty Start Date End Date Unknown, Provider, PCP - General 04/22/15
--- OUTSIDE RECORDS SUMMARY | 2024-01-15 17:52 | XMS_ITS | Continuity of Care Document ---
Author Organization [facility] Address [address] [place] [address] Encounter [id number] Date(s): 02/04/23 - 02/04/[address] [phone] Discharge Disposition: Home or Self Care Attending Physician: Nolvia Núñez PA-C Admitting Physician: Nolvia Núñez PA-C Assessment and Plan Diagnostic Tests Pending * Throat Culture 02/04/23
--- OUTSIDE RECORDS SUMMARY | 2024-01-15 17:52 | XMS_ITS | Encounter Summary ---
Author Organization [facility] Address [address] [place] [address] Care Team Providers Care Dental Assistant Teacher Name Role Phone Unavailable Primary Care Provider Unavailabl e Encounter Details Date Type Department Care Team (Late st Contact Info) Description 01/22/2008 Before PRISM Converted Visit (Maple) [facility] - Maple conversion [address] [place] [address] Araceli Bacon CNM [address] [place] [address] Social History Tobacco Use Types Packs/Day Years Used Date Smoking Tobacco: Never Assessed Sex and Gender Information Value Date Recorded Sex Assigned at Not on file Gender Identity Not on file Sexual Orientation Not on file documented as of this encounter Plan of Treatment Not on file documented as of this encounter Procedures Procedure Name Priority Date/Time Associated Diagnosis Comments CYTOPATHOLOGY Routine 01/22/2008 0:00 EDT documented in this encounter Results * CYTOPATHOLOGY (01/22/2008 0:00 EDT) Pathology Report: CYTOPATHOLOGY REPORT ? Reports generated via electronic interface contain original data; ? however they are lacking the format of the original report. ? Caution should be taken when reading/interpreti ng unformatted reports. ? Name: ? TOI, ZACHERY L ? Accession #: ? [id number] ? : ? 1985 (Age: 22) ??F ?Collect Date: ? 01/22/2008 ? Location: ? [facility] ? Receive Date: ? 01/23/2008 ? Provider: ?ANEA LELONG CNM ? Copy to: ? Specimen/Source: ?ThinPrep Pap Test, Cervix/Endocervix, processed on Cytyc ThinPrep Imaging System, with manual evaluation ? Last Menstrual Period: ? 6/11/08 ? Menstrual/Pregnanc y Status: ? SPECIMEN ADEQUACY ? Satisfactory for Evaluation ? - transformation zone component present ? GENERAL CATEGORIZATION ? Negative for Intraepithelial Lesion or Malignancy ? Document reviewed and electronically signed by: ? Max Stumler, CT(ASCP) ? Report Date: ??01/25/2008 12:49 ? End of Report ? JUNE ALVARADO 01/22/2008 01/23/2008 Araceli Bacon CNM PATHOLOGY ORDERABLES Performing Organization Address City/State/[facility] Co de Phone Number JUNE ALVARADO [address] [place] [address] documented in this encounter Visit Diagnoses Not on filedocumented in this encounter
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
--- OUTSIDE RECORDS SUMMARY | 2024-01-15 17:52 | XMS_ITS | Encounter Summary ---
Author Organization [facility] Address [address] [place] [address] Care Team Providers Care Inventory Control/Shipping Receiving Name Role Phone Unknown, Provider Primary Care Provider [phone] Encounter Details Date Type Department Care Team (Late st Contact Info) Description 08/16/2022 Lab Requisition [facility] Pathology & Laboratory Medicine - [facility] [address] [place] [address] Rhina Ernandez MD [address] [place] [address],[address] [place] [address] Encounter for other general examination Social History Tobacco Use Types Packs/Day Years Used Date Smoking Tobacco: Never Assessed Sex and Gender Information Value Date Recorded Sex Assigned at Not on file Gender Identity Not on file Sexual Orientation Not on file documented as of this encounter Plan of Treatment Not on file documented as of this encounter Procedures Procedure Name Priority Date/Time Associated Diagnosis Comments NON HUMAN SERVICES PROFESSIONAL/FNA CYTOLOGY Today 08/15/2022 8:30 EST Encounter for other general examination documented in this encounter Results * NON HUMAN SERVICES PROFESSIONAL/FNA CYTOLOGY (08/15/2022 8:30 EST) Note to Patient The following pathology results have been interpreted by your pathologist and may be available to you before your health provider has had the opportunity to review them. Please allow time for your provider to receive these results and explore management options, if applicable. 08/16/2022 12:45 EST [facility] Final Diagnosis A. PERITONEAL FLUID, PELVIC WASHINGS, CYTOLOGIC EVALUATION: - No malignant cells identified. - Pauci-cellular specimen, red blood cells, mixed leukocytes and rare mesothelial cells. See comment. 08/16/2022 12:45 [facility] Diagnosis Comment Please see concurrent surgical pathology specimen ([id number]) which is pending at this time. 08/16/2022 12:45 [facility] Attestation By the signature below, the attending physician certifies that they have personally conducted a gross and/or microscopic examination of the described specimens and rendered or confirmed the above diagnosis. 08/16/2022 12:45 [facility] at 1245 Clinical History Left ovarian cyst 08/16/2022 12:45 [facility] Gross Description A. 70 cc's of opaque red fluid were received and processed by selective cellular enhancement technique. 08/16/2022 12:45 [facility] Performing Lab [facility] 08/16/2022 12:45 [facility] Scanned Images 08/16/2022 12:45 [facility] Fluid PERITONEAL FLUID / Unknown 08/15/2022 8:30 EST 08/16/2022 7:38 EST Rhina Ernandez MD PATHOLOGY ORDERABLES [facility] [address] [place] [address] documented in this encounter Visit Diagnoses Diagnosis Encounter for other general examination documented in this encounter Care Teams Inventory Control/Shipping Receiving Relationship Specialty Start Date End Date Unknown, Provider, PCP - General 04/22/15 documented as of this encounter
== END 2024-01-15 17:52 | disposition home or self-care (01) ==
LOC: LBN 17:51
PROVIDERS: PCP Nurse Practitioner Family; Visit Provider Nurse Practitioner Family
DX: N94.6 Dysmenorrhea, unspecified (principal); Z30.45 Encounter for surveillance of transdermal patch hormonal contraceptive device; I10 Essential (primary) hypertension
CPT/HCPCS: 88142; 88164; 87624; P3000

== ENCOUNTER 2024-01-18 16:20 | Outpatient (REF) | payer MEDICAID, SELFPAY ==
--- OUTSIDE RECORDS SUMMARY | 2024-01-19 16:22 | XMS_ITS | Encounter Summary ---
Author Organization [facility] Address [address] [place] [address] Care Team Providers Care Event Management Consultant Name Role Phone Unknown, Provider Primary Care Provider [phone] Encounter Details Date Type Department Care Team (Late st Contact Info) Description 08/16/2022 Lab Requisition [facility] Pathology & Laboratory Medicine - [facility] [address] [place] [address] Rhina Ernandez MD [address] [place] [address],[address] [place] [address] Encounter for other general examination Social History [...] Name Priority Date/Time Associated Diagnosis Comments NON HOME ENERGY CONSULTANT/FNA CYTOLOGY Today 08/15/2022 8:30 EST Encounter for other general examination documented in this encounter Results * NON HOME ENERGY CONSULTANT/FNA CYTOLOGY (08/15/2022 8:30 EST) Note to Patient The following pathology results have been interpreted by your pathologist and may be available to you before your health provider has had the opportunity to review them. Please allow time for your provider to receive these results and explore management options, if applicable. 08/16/2022 12:45 EST [facility] Final Diagnosis A. PERITONEAL FLUID, PELVIC WASHINGS, CYTOLOGIC EVALUATION: - No malignant cells identified. - Pauci-cellular specimen, red blood cells, mixed leukocytes and rare mesothelial cells. See comment. 08/16/2022 12:45 [facility] Diagnosis Comment Please see concurrent surgical pathology specimen ([id number]) which is pending at this time. 08/16/2022 12:45 [facility] Attestation By the signature below, the attending physician certifies that they have personally conducted a gross and/or microscopic examination of the described specimens and rendered or confirmed the above diagnosis. 08/16/2022 12:45 [facility] at 1245 Clinical History Left ovarian cyst 08/16/2022 12:45 [facility] Gross Description A. 70 cc's of opaque red fluid were received and processed by selective cellular enhancement technique. 08/16/2022 12:45 [facility] Performing Lab [facility] 08/16/2022 12:45 [facility] Scanned Images 08/16/2022 12:45 [facility] Fluid PERITONEAL FLUID / Unknown 08/15/2022 8:30 EST 08/16/2022 7:38 EST Rhina Ernandez MD PATHOLOGY ORDERABLES [facility] [address] [place] [address] documented in this encounter Visit Diagnoses Diagnosis Encounter for other general examination documented in this encounter Care Teams Event Management Consultant Relationship Specialty Start Date End Date Unknown, Provider, PCP - General 04/22/15 documented as of this encounter
--- OUTSIDE RECORDS SUMMARY | 2024-01-19 16:22 | XMS_ITS | Data Portability ---
Author Organization [facility] [place] [address] Care Team Providers Care Rolling Machine Tender Name Role Phone [facility] ([facility]) Primary C are Provider Assessment Encounter Date Assessment Date Assessment LastModified by Organization Details LastModified Time 06/15/2023 06/15/2023 elevated bp [email or web address] Not available 11:58:43 Plan of Treatment Reminders Order Date Submit Date Provider Last Modified By Organization Details Last Modified Time Details Appointments None recorded. Lab SARS CoV 2 RNA (COVID-19), QL, vulcanizer rubber plate-PCR, respiratory specimen 2023 024 [facility] (Registration ), [address] [place] [address] [place], [address], 17:09:59 Referral None recorded. Procedures None recorded. Surgeries None recorded. Imaging XR, chest, 2 view 2023 024 [facility] (Radiology), [address] [place] [address] [place], [address], 14:00:23 Medication Orders prednisone 20 mg tablet 2023 024 [facility], [address] [place], [address], 12:44:17 Patient TargetsNo targets recorded. Patient Instructions Encounter Date Encounter Id Patient Instructions Last Modified By Organization Details Last Modified Time 06/15/2023 [id number] 1. X-rays have been ordered and will [...] LastModifiedTime 06/15/19 24 06/15/2023 COVID -19 PCR ([facility] ) source Nasal/ Nares Not Available [facility] (Registration ) [address] [place] [address] [place], [address], 06/15/2023 15:48:19 06/15/19 24 06/15/2023 COVID -19 PCR ([facility] ) covid-19 PCR Negati ve negati ve Not Available [facility] (Registration ) [address] [place] [address] [place], [address], 06/15/2023 15:48:19 10/20/19 24 10/20/2023 COMPR EHENS RUSLAN METAB OLIC PANEL calcium 8.9 mg/dL 8.5-10 .1 normal Not Available [address] [place], [address] 10/20/2023 13:47:39 10/20/19 24 10/20/2023 COMPR EHENS RUSLAN METAB OLIC PANEL glucose 98 mg/dL 74-106 normal Not Available [address] [place], [address] 10/20/2023 13:47:39 10/20/19 24 10/20/2023 COMPR EHENS RUSLAN METAB OLIC PANEL BUN 12 mg/dL 7-18 normal Not Available [address] [place], [address] 10/20/2023 13:47:39 10/20/19 24 10/20/2023 COMPR EHENS RUSLAN METAB OLIC PANEL creatinine 1.0 mg/dL 0.55-1 .02 normal Not Available [address] [place], [address] 10/20/2023 13:47:39 10/20/19 24 10/20/2023 COMPR EHENS RUSLAN METAB OLIC PANEL estimated GFR 74.88 mL/min /1.73m 2 Not Available [address] [place], [address] 10/20/2023 13:47:39 10/20/19 24 10/20/2023 COMPR EHENS RUSLAN METAB OLIC PANEL total protein 7.7 g/dL 6.4-8. 2 normal Not Available [address] [place], [address] 10/20/2023 13:47:39 10/20/19 24 10/20/2023 COMPR EHENS RUSLAN METAB OLIC PANEL albumin 3.9 g/dL 3.4-5. 0 normal Not Available [address] [place], [address] 10/20/2023 13:47:39 10/20/19 24 10/20/2023 COMPR EHENS RUSLAN METAB OLIC PANEL bilirubin, total 0.4 mg/dL 0.2-1. 0 normal Not Available [address] [place], [address] 10/20/2023 13:47:39 10/20/19 24 10/20/2023 COMPR EHENS RUSLAN METAB OLIC PANEL alk phos 61 U/L 46-116 normal Not Available [address] [place], [address] 10/20/2023 13:47:39 10/20/19 24 10/20/2023 COMPR EHENS RUSLAN METAB OLIC PANEL sodium 141 mmol/ L 136-14 5 normal Not Available [address] [place], [address] 10/20/2023 13:47:39 10/20/19 24 10/20/2023 COMPR EHENS RUSLAN METAB OLIC PANEL potassium 3.5 mmol/ L 3.5-5. 1 normal Not Available [address] [place], [address] 10/20/2023 13:47:39 10/20/19 24 10/20/2023 COMPR EHENS RUSLAN METAB OLIC PANEL chloride 105 mmol/ L 98-107 normal Not Available [address] [place], [address] 10/20/2023 13:47:39 10/20/19 24 10/20/2023 COMPR EHENS RUSLAN METAB OLIC PANEL CO2 26.6 mmol/ L 21.0-3 2.0 normal Not Available [address] [place], [address] 10/20/2023 13:47:39 10/20/19 24 10/20/2023 COMPR EHENS RUSLAN METAB OLIC PANEL anion gap 9.4 mmol/ L 3-11 normal Not Available [address] [place], [address] 10/20/2023 13:47:39 10/20/19 24 10/20/2023 COMPR EHENS RUSLAN METAB OLIC PANEL AST 11 U/L 15-37 low Not Available [address] [place], [address] 10/20/2023 13:47:39 10/20/19 24 10/20/2023 COMPR EHENS RUSLAN METAB OLIC PANEL ALT 17 U/L 14-59 normal Not Available [facility] [address] [place], [address] 10/20/2023 13:47:39 10/20/19 24 10/20/2023 LIPID 2 cholesterol 140 mg/dL <200 Not Available [address] [place], [address] 10/20/2023 13:47:39 10/20/19 24 10/20/2023 LIPID 2 triglyceride 101 mg/dL <150 Not Available [address] [place], [address] 10/20/2023 13:47:39 10/20/19 24 10/20/2023 LIPID 2 HDL cholesterol 39 mg/dL 40-60 low Not Available Yoav barajas [address] [place], [address] 10/20/2023 13:47:39 10/20/19 24 10/20/2023 LIPID 2 calculated LDL 81 mg/dL <100 Not Available Addis schultz [address] [facility] [place], [address] 10/20/2023 13:47:39 10/20/19 24 10/20/2023 TSH (W/RE F FT4) TSH (w/ref FT4) 1.58 uIU/m L 0.36-3 .74 normal Not Available [address] [facility] [place], [address] 10/20/2023 13:47:40 06/15/19 24 06/15/2023 XR, chest , 2 view No observ ation record ed. Not Available 06/15/2023 14:22:19 06/15/19 24 06/15/2023 XR, chest , 2 view Patien t Name: Yeimi Rust Unit #: [id number] Loc: DI Orderi ng Provid er: Nolvia Watson Accoun t #: [id number] Status : PRE CLI Primar [...] error, please notify us immedi ately at [phone] and return the origin al report to us at the addres s above. Thank- you. [email or web address] [facility] (Radiology) [facility] [place], [address], 06/15/2023 15:03:58 06/15/19 24 06/15/2023 XR, chest , 2 view No observ ation record ed. [email or web address] [facility] (Radiology) [address] [facility] [place], [address], 06/15/2023 15:01:17 10/20/19 24 10/20/2023 ultra sound imagi ng paul [place] t Name: Yeimi Rust Unit #: [id number] Loc: DI Ghada meza Provid er: Marisol Willis Accoun t #: [id number] Status : REG CLI Primar y [...] at the addres s above. Thank- you. [email or web address] [facility] [address] [facility] [place], [address] 10/23/2023 05:57:05 Result Notes None recorded. Problems [...] F33.9; Problem Code Type: ICD-10; Not Available [facility] 3 05:12:12 Obesity Active 2013 Problem Code: E66.9; Problem Code Type: ICD-10; Not Available [facility] 3 05:12:12 Pneumonia Completed 201406/02/2015 Problem Code: J18.9; Problem Code Type: ICD-10; Not Available [facility] 3 05:12:12 Adult health examination Active 201402/03/2017 [...] Z00.00; Problem Code Type: ICD-10; Not Available [facility] 3 05:12:12 Acute pharyngitis Active 2015 Problem Code: J02.9; Problem Code Type: ICD-10; Not Available [facility] 3 05:12:13 Elevated blood-pressur e reading without diagnosis of hypertension Active 201602/03/2017 - Comments only - Azeem Elizabeth MD - New issue, was not issue during . Will follow, get renal function. Problem Code: R03.0; Problem Code Type: ICD-10; Not Available [facility] 3 05:12:13 Hypertrophic condition of skin Active 201602/03/2017 - Comments only - Azeem Elizabeth MD - Removed after local with 1% lido with epi, cleaning with alcohol, with 10 blade. Bacitracin and bandage placed. Problem Code: L91.8; Problem Code Type: ICD-10; Not Available [facility] 3 05:12:13 Posttraumatic stress disorder Active 2016 Problem Code: F43.10; Problem Code Type: ICD-10; Not Available [facility] 3 05:12:13 Acute bronchitis Completed 201703/25/2018 Problem Code: J20.9; Problem Code Type: ICD-10; Not Available [facility] 3 05:12:13 Acute pharyngitis Completed 202203/07/2023 Problem Code: J02.9; Problem Code Type: ICD-10; Not Available [facility] 3 05:12:13 Screening for disorder Completed 201403/08/2023 Problem Code: Z13.9; Problem Code Type: ICD-10; Not Available [facility] 3 05:12:26 Depressive disorder Completed 200603/08/2023 Not Available [facility] 3 05:12:35 Cough Active [address], [place], [address] , [facility] 11:58:41 Problem Notes None recorded. Procedures Surgical History Date Name Laterality Status Provider Name and Address Organization Details Recorded Time Nebulizer tx completed [facility] 06/15/2023 12:02:28 Imaging Results Imaging Date Name Status LastModified by Organiz ation Details LastModified Time 06/15/2023 XR, chest, 2 view completed Information not available 06/15/2023 14:22:19 06/15/2023 XR, chest, 2 view completed [email or web address] [facility] (Radiology) [address] [place] [address] [place], [address], 06/15/2023 15:03:58 06/15/2023 XR, chest, 2 view completed [email or web address] [facility] (Radiology) [address] [place] [address] Dr [facility] [place], [address], 06/15/2023 15:01:17 10/20/2023 ultrasound imaging report completed [email or web address] [address] [place], [address] 10/23/2023 05:57:05 Procedure Notes None recorded. Medical Equipment None Reported. Allergies Allergen ID Allergen Name Allergen Category Reaction Reaction Severity Criticality Documentation Date Start Date Code Code System Note Provider Name and Address Organization Details Recorded Time 73800 Phenergan medicatio n other moderate Not available 06/15/2023 54947 8 RxNorm invol untar y twitc betsy [facility]ON [facility] 11:33:59 Medications Name Sig Start Date [...] Updated DateTime 4 152.1 cm 38.6 kg/m2 96479.7 g 18 /min 98 [degF] 98 % 98 % 84 /min 129 mm[Hg] 91 mm[Hg] Denise Robledo MA [facility] 10:37:20 Social History Question Answer Notes LastModified by Organizat ion Details LastModified Time Tobacco Smoking Status Never Smoker Denise Robledo MA null, [facility] 06/15/2023 10:35:53 What Was The Date [...] Aliv e , 47, depression Father: of [place] age 44. no cancer in 1st deg relative Medical History No medical history recorded. Gynecological HistoryNo gynecological history recorded. Obstetrics History GPAL:G 0 P 0 0 0 0 Immunizations Vaccine Type Date Status Provider Name and Address Organization Details Recorded Time Tdap 02/05/2010 completed KASSANDRA Fenton, [facility] 06/19/2023 09:23:54 COVID-19, mRNA, LNP-S, bivalent, PF, 10 mcg/0.2 mL 05/04/2021 completed KASSANDRA Fenton, [facility] 06/19/2023 09:24:14 COVID-19, mRNA, LNP-S, bivalent, PF, 10 mcg/0.2 mL 06/01/2021 completed KASSANDRA Fenton, [facility] 06/19/2023 09:24:19 Past Encounters Encounter ID Performer Location Encounter Start Date Encounter Closed Date Diagnosis/Indication Diagnosis SNOMED-CT Code [id number] NOLVIA WATSON PA-C [address],[facility] [address] [place] [address] 06/15/2023 09:45:22 06/15/2023 12:48:21 Elevated blood-pressure reading without diagnosis of hypertension [id number] Cough [id number] Health Concerns Section Related Observation LastModified by Organization Stephanieai ls LastModified Time None Recorded Concern Status LastModified by Organization Details LastModified Time None Recorded Advance Directives Directive None Recorded Payers Encounter Date Sequence Insurance Name Policy Number Policy Claire Covered Member ID Claire Member ID Guarantor Name 06/15/2023 1 [facility] (MEDICAID) Mackenzie Rust [id number] Mackenzie Rust Notes Date Note Type Note Provider Name and Address Organization Details Recorded Time 06/15/2023 text/html HPI Notes: Mackenzie is a 37-year-old female who presents for reevaluation of upper respiratory infection that began on 06/10 which felt to her like previous episodes of pneumonia which she has had on 2 occasions. She went to the [facility] care at [facility] on 06/12 and had a negative [...] which was noted to be 151/[address] [facility]. She tried to follow-up with her primary care provider in [facility] regarding this but they did not have any appointments. Her blood pressure here is noted to be 129/91. She does not have a blood pressure cuff at home. [address], [place], [address], [facility], [facility]. 06/15/2023 15:05:27 OBGyn Episode No OBEpisode recorded.
--- OUTSIDE RECORDS SUMMARY | 2024-01-19 16:22 | XMS_ITS | Encounter Summary ---
Author Organization [facility] Address [address] [place] [address] Care Team Providers Care Cryogenics Engineer Name Role Phone Unavailable Primary Care Provider Unavailabl e Encounter Details Date Type Department Care Team (Late st Contact Info) Description 08/07/2009 Results Only [facility] Services - [facility] ([facility] [address] [place], [place] [id number] Francine Harley MD [address] [place] [id number] Social History Tobacco Use Types Packs/Day Years [...] TOI, ZACHERY Sadler ? Accession #: ? [id number] ? : ? 1985 (Age: 24) ??F [...] MD PATHOLOGY ORDERABLES [facility] [address] [place] [address] documented in this encounter Visit Diagnoses Not on filedocumented in this encounter
--- OUTSIDE RECORDS SUMMARY | 2024-01-19 16:22 | XMS_ITS | Encounter Summary ---
Author Organization [facility] Address [address] [place] [address] Care Team Providers Care Implementation Advisor Name Role Phone Unknown, Provider Primary Care Provider [phone] Encounter Details Date Type Department Care Team (Late st Contact Info) Description 08/16/2022 Lab Requisition [facility] Pathology & Laboratory Medicine - [facility] [address] [place] [address] Rhina Ernandez MD [address] [place] [address] [address] [place] [address] Unspecified ovarian cyst, unspecified side Social History [...] management options, if applicable. 08/18/2022 8:[address] [facility] Final Diagnosis A. OVARY, LEFT, CYST WALL, CYSTECTOMY: - Endometriotic cyst. 08/18/2022 8:38 [facility] Attestation By the signature below, the attending physician certifies that they have 1) personally conducted a gross and/or microscopic examination of the described specimen(s), and/or personally interpreted the results of laboratory testing of the described specimen(s), and 2) personally rendered or confirmed the above diagnosis. 08/18/2022 8:38 [facility] at 0838 Clinical History Left ovarian cyst 08/18/2022 8:38 [facility] Gross Description A. Received in formalin labelled with proper patient identification (initials C, J) and left ovarian cyst wall is a 7.0 x 4.3 x 0.4 cm ovoid fragment of soft salagdo-shafer to red-brown tissue. One surface is smooth and the opposite surface is granular. No excrescences or firm areas identified. Assistant Oceanographer sections are submitted in A1-A 3. KYLAH WOODS(ASCP) 08/16/2022 10:06 08/18/2022 8:38 [facility] Performing Lab [facility] 08/18/2022 8:38 [facility] Scanned Images 08/18/2022 8:38 [facility] Tissue ENTIRE OVARY / Unknown 08/15/2022 8:30 EST 08/16/2022 8:57 EST Rhina Ernandez MD PATHOLOGY ORDERABLES [facility] [address] [place] [address] documented in this encounter Visit Diagnoses Diagnosis Unspecified ovarian cyst, unspecified side documented in this encounter Care Teams Implementation Advisor Relationship Specialty Start Date End Date Unknown, Provider, PCP - General 04/22/15 documented as of this encounter
--- OUTSIDE RECORDS SUMMARY | 2024-01-19 16:22 | XMS_ITS | Clinical Summary ---
Author Organization [facility] Address [address] [place] [address] Care Team Providers Care Tanning Wheel Filler Name Role Phone Unknown, Provider Primary Care [...] COVID-19 Vaccine ( season) 2023 Care Teams Tanning Wheel Filler Relationship Specialty Start Date End Date Unknown, Provider, PCP - General 04/22/15
--- OUTSIDE RECORDS SUMMARY | 2024-01-19 16:22 | XMS_ITS | Encounter Summary ---
Author Organization [facility] Address [address] [place] [address] Care Team Providers Care Consular Officer Name Role Phone Unavailable Primary Care Provider Unavailabl e Encounter Details Date Type Department Care Team (Late st Contact Info) Description 08/14/2006 Results Only [facility] - Maple conversion [address] [place] [address] Venkat Tilley, MACHO [address] [facility] [address] [place] [address] Social History Tobacco Use Types [...] ? ZACHERY RUST ? Accession #: ? [id number] : ? 1985 (Age: 21) ??F ?Collect Date: ? 08/14/2006 Location: ? [facility] ? Receive Date: ? 08/15/2006 Provider: ?VENKAT TILLEY CIA AGENT Copy to: ? Specimen/Source: ?ThinPrep Pap Test, Cervix/Endocervix, processed on [employer] Imaging System, with manual evaluation Last Menstrual [...] Tilley NP PATHOLOGY ORDERABLES JUNE ALVARADO [address] [place] [address] documented in this encounter Visit Diagnoses Not on filedocumented in this encounter
--- OUTSIDE RECORDS SUMMARY | 2024-01-19 16:22 | XMS_ITS | Encounter Summary ---
Author Organization [facility] Address [address] [place] [address] Care Team Providers Care Last Waxer Name Role Phone Unavailable Primary Care Provider Unavailabl e Encounter Details Date Type Department Care Team (Late st Contact Info) Description 08/01/2012 Results Only [facility] Services - [facility] ([facility] [address] [place], [place] [id number] Mario Roberson NP [address] [place] [address] Social History Tobacco Use Types [...] ? ZACHERY RUST ? Accession #: ? [id number] : ? 1985 (Age: 27) ??F ?Collect Date: ? 08/01/2012 Location: ? [facility] ? Receive Date: ? 08/03/2012 Provider: ?MARIO ROBERSON RN FIELD Copy to: ? Specimen/Source: ?Pap Test, Cervix, [...] Roberson NP PATHOLOGY ORDERABLES JUNE ALVARADO [address] [place] [address] documented in this encounter Visit Diagnoses Not on filedocumented in this encounter
--- OUTSIDE RECORDS SUMMARY | 2024-01-19 16:22 | XMS_ITS | Encounter Summary ---
Author Organization [facility] Address [address] [place] [address] Care Team Providers Care Chicken And Fish Butcher Name Role Phone Unavailable Primary Care Provider Unavailabl e Encounter Details Date Type Department Care Team (Late st Contact Info) Description 01/22/2008 Before PRISM Converted Visit (Maple) [facility] - Maple conversion [address] [place] [address] Araceli Bacon CNM [address] [place] [place] [address] Social History Tobacco Use Types Packs/Day Years [...] TOI, ZACHERY L ? Accession #: ? [id number] ? : ? 1985 (Age: 22) ??F [...] Bacon CNM PATHOLOGY ORDERABLES Performing Organization Address City/State/[facility] Co de Phone Number JUNE ALVARADO [address] [place] [address] documented in this encounter Visit Diagnoses Not on filedocumented in this encounter
--- OUTSIDE RECORDS SUMMARY | 2024-01-19 16:22 | XMS_ITS | Referral Summary ---
Author Organization [facility] Address [address] [place] [address] Care Team Providers Care Chief Lending Officer Name Role Phone Unknown, Provider Primary Care [...] of Treatment Not on file Care Teams Chief Lending Officer Relationship Specialty Start Date End Date Unknown, Provider, PCP - General 04/22/15
--- OUTSIDE RECORDS SUMMARY | 2024-01-19 16:22 | XMS_ITS | Encounter Summary ---
Author Organization [facility] Address [address] [place] [address] Care Team Providers Care Security Patrol Driver Name Role Phone Unknown, Provider Primary Care Provider Reason for Visit * Reason Comments Anxiety Encounter Details Date Type Department Care Team ([facility] st Contact Info) Description 04/13/2022 8:00 EDT Office Visit [facility] Child Psychiatry - [address] [address] Doron Thomson MD [address] [place] [phone] Other specified anxiety disorders (Primary Dx) Social [...] Primary documented in this encounter Care Teams Security Patrol Driver Relationship Specialty Start Date End Date Unknown, Provider, PCP - General 04/22/15 documented as of this encounter
[2024-01-19 16:50] LABS: Hemoglobin A1C 5.7 % (<5.7)
[2024-01-19 16:53] LABS: ALT 19 U/L (14-59); AST 12 U/L (15-37); Albumin 3.5 g/dL (3.4-5.0); Alkaline Phosphatase 52 U/L (46-116); Anion Gap 8.9 mmol/L (3-11); BUN 13 mg/dL (7-18); Bilirubin, Total 0.24 mg/dL (0.2-1.0); CO2 26.1 mmol/L (21.0-32.0); CREATININE 0.9 mg/dL (0.55-1.02); Calcium 8.4 mg/dL (8.5-10.1); Chloride 105 mmol/L (98-107); Estimated GFR 84.97 (mL/min/1.73m2); Glucose 76 mg/dL (74-106); Potassium 4.3 mmol/L (3.5-5.1); Sodium 140 mmol/L (136-145); Total Protein 7.1 g/dL (6.4-8.2)
== END 2024-01-18 16:21 | disposition home or self-care (01) ==
LOC: LBN 16:20
PROVIDERS: PCP Nurse Practitioner Family; Visit Provider Nurse Practitioner Family
DX: E78.5 Hyperlipidemia, unspecified (principal); I10 Essential (primary) hypertension
CPT/HCPCS: 80053; 83036

== ENCOUNTER 2025-04-08 00:56 | Outpatient (CLI) | payer MEDICAID, SELFPAY ==
--- NOTE | 2025-04-08 | DI.CT_ITS ---
Exam(s) CT LOWER EXTREMITY LT WO EXAM: CT LOWER EXTREMITY LT WO CLINICAL HISTORY: M25.562 Pain in left knee. TECHNIQUE: Imaging Protocol: Axial computed tomography images with coronal and sagittal reformatted images were created and reviewed. CONTRAST MATERIAL: Intravenous: None COMPARISON: No exams were available for comparison FINDINGS: OSSEOUS: No evidence of fracture. There is a small joint effusion. No calcified loose intra-articular bodies evident. There is no significant narrowing of the medial lateral joint spaces. There are no osteochondral defects at the articular surfaces of the femoral condyles. Tibial plateau appears unremarkable as does the fibular head and neck. There is abnormal position of the patella which appears tilted laterally. There does not appear to be prominent thinning of the retropatellar cartilage realizing limitations of CT scan for determining this. There is possibly injury here of the medial patellar retinaculum. SOFT TISSUES: There is mild soft tissue swelling anterior to the inferior pole the patella and superior aspect of the patellar ligament. There does not appear to be an obvious tear of the patellar ligament nor of the quadriceps tendon. IMPRESSION: Main finding here is a abnormal lateral tilting of the patella and thinning of the medial patellar retinaculum which may indicate an element of tearing. There is also a small-moderate size joint effusion. Clinically indicated further study with MRI can be performed for added sensitivity and specificity. RADIATION DOSE DELIVERED: 201.42mGy.cm Total DLP DATA REPOSITORY: All CT scans at this facility are submitted to the National Radiology Data Registry (NRDR) Dose Index Registry (DIR) with the [employer] (ACR). RADIATION OPTIMIZATION: All CT scans at this facility use at least one of these dose optimization techniques: automated exposure control; mA and/or kV adjustment per patient size (includes targeted exams where dose is matched to clinical indication); or iterative reconstruction.
--- NOTE | 2025-04-08 10:30 | DI.US_ITS ---
Exam(s) US SOFT TISSUE EXTREMITY EXAM: US SOFT TISSUE EXTREMITY CLINICAL HISTORY: M67.431 Ganglion right wrist. TECHNIQUE: Ultrasound was performed using standard protocol. COMPARISON: No exams were available for comparison FINDINGS: Dedicated ultrasound examination of the area of clinical concern on the dorsal aspect of the wrist was performed. The patient states that the finding has significantly decreased in size from a few months ago. Today's images reveal no truly discernible mass nor fluid collection this level. IMPRESSION: No truly discernible mass nor fluid collection on the dorsal aspect of the wrist. If clinically indicated further study with MRI can be performed for added sensitivity and specificity. DATA REPOSITORY:
== END 2025-04-08 01:16 ==
LOC: DI 00:56
PROVIDERS: PCP Nurse Practitioner Family; Visit Provider Nurse Practitioner Family
DX: M67.431 Ganglion, right wrist (principal); M25.562 Pain in left knee
CPT/HCPCS: 76881; 73700

== ENCOUNTER → 2025-05-27 00:18 | Outpatient (CLI) | payer MEDICAID, SELFPAY ==
--- NOTE | 2025-05-27 | DI.MRI_ITS ---
Exam(s) MR LOWER JOINT LT WO EXAM: MR LOWER JOINT LT WO CLINICAL HISTORY: PAIN LEFT KNEE M25.562. TECHNIQUE: Multiplanar multisequence MRI was performed. COMPARISON: No exams were available for comparison FINDINGS: BONES: There is no fracture or contusion pattern. JOINTS: There are fissures seen within the articular cartilage overlying the patella. There is normal marrow signal in the underlying patella. There is a small joint effusion. TENDONS: Extensor mechanism: Unremarkable. Medial retinaculum: Unremarkable. Lateral retinaculum: Unremarkable. Popliteus: Unremarkable. MUSCLES: Unremarkable. MENISCI: The medial meniscus is unremarkable. There is oblique linear hyperintense signal seen in the body of the lateral meniscus which may represent a tear. SOFT TISSUES: Unremarkable. LIGAMENTS: Anterior Cruciate: Unremarkable. Posterior Cruciate: Unremarkable. Medial Collateral:Unremarkable. Lateral Collateral: Unremarkable. OTHER: IMPRESSION: 1. Chondromalacia patella. 2. No evidence of a ligament tear. 3. Question of a tear of the body of the lateral meniscus. 4. Small joint effusion. DATA REPOSITORY:
== END ==
LOC: DI 00:18
PROVIDERS: PCP Nurse Practitioner Family; Visit Provider Nurse Practitioner Family
DX: M22.42 Chondromalacia patellae, left knee (principal); R93.7 Abnormal findings on diagnostic imaging of other parts of musculoskeletal system
CPT/HCPCS: 73721